=== PATIENT | female | born 1945 | race Caucasian/White ===

== ENCOUNTER 2018-12-19 11:41 | Inpatient (IN) | payer OTHER ==
[~2018-12-19] VITALS: Ht 157.5 cm; Wt 74.8 kg
[~2018-12-19 11:41] MED LIST: ADVAIR HFA115 MCG/21 INH; ALBUTEROL2.5 MG/0.5 INH; APAP500 PO; BENGAY GREASELE57 GM TOP; BISACODYL SUPP10 MG RECTAL; COLACE100 MG PO; COMPAZINE10 MG PO; DUONEB 2.5-0.5 M3 ML INH; ENOXAPARIN30 MG/0.1 SUBQ; GENTAMICIN 0.1%15 G2 TOP; HYDROCODONE-AP1 EAC6 PO; IMDUR 30 MG TAB30 M1 PO; KLOR-CON 1010 MEQ PO; KLOR-CON M1010 MEQ PO; LASIX 40 MG TAB40 M2 PO; LEVAQUIN 250 M250 MG PO; LEVAQUIN 500 M500 M1 PO; LIDOCREAM5 GM TOP; LIDOCREAM5 GM TP; MAG DELAY64 MG PO; MAG-AL PLUS SUS30 ML PO; MILK OF MA2400 MG/10 PO; MUCINEX TA600 MG/TA2 PO; NOVOLOG100 UNIT/1 SUBQ; PAIN RELIEF CRE57 GM TOP; PEPCID20 MG PO; PLAVIX 75 MG TA75 M1 PO; PREDNISONE 20 M20 M1 PO; PREDNISONE 20 M20 MG PO; PULMICORT0.5 MG/22 INH; SENNA8.6 MG PO; SINGULAIR 10 MG10 MG PO; SPIRIVA INH; TEARS NATURALE1 EACH OPHTHALMIC; TEGRETOL XR200 MG PO; TUMS PO; TYLENOL325 MG PO; WELLBUTRIN SR150 MG PO; WELLBUTRIN XL150 MG PO; XANAX 0.5 MG0.5 MG PO; ZOLOFT100 MG PO
[2018-12-19 11:42] VITALS: BP 144/61
[2018-12-19 12:25] LABS: BASOPHILS 0.5 % (0.0-2.0); EOSINOPHILS 0.3 % (0.0-3.0); HEMATOCRIT 48.2 % (37.0-47.0); HEMOGLOBIN 16.1 gm/dL (12.0-15.0); LYMPHOCYTES 6.7 % (24.0-44.0); MCH 33.6 pg (26.0-34.0); MCHC 33.3 g/dL (28.0-37.0); MCV 100.6 fL (80.0-100.0); MONOCYTES 8.7 % (1.0-8.0); PLATELET COUNT 115 thou/uL (150-400); POLYS 83.8 % (36.0-66.0); RBC 4.79 mil/uL (4.20-5.00); WBC 5.9 thou/uL (4.0-11.0)
[2018-12-19 12:45] LABS: ALBUMIN 3.3 g/dL (3.4-5.0); ANION GAP 7 mmol/L (7-16); BUN 13 mg/dL (7-18); CALCIUM 8.9 mg/dL (8.5-10.1); CHLORIDE 99 mmol/L (98-107); CO2 36 mmol/L (21-32); CREATININE 0.7 mg/dL (0.6-1.0); GLUCOSE 101 mg/dL (74-106); SGOT 17 U/L (15-37); SGPT 12 U/L (30-65); SODIUM 142 mmol/L (136-145); TOTAL BILIRUBIN 1.2 mg/dL (<0.1-1.0); TROPONIN-I <0.06 ng/mL (<0.06)
[2018-12-19 12:46] LABS: POTASSIUM 2.8 mmol/L (3.5-5.1)
[2018-12-19 13:07] LABS: BE(vivo) 7.4 mmol/L (-2 to +3); HCO3 33.7 mmol/L (22.0-26.0); PCO2 52.4 mmHg (35.0-45.0); PO2 64.5 mmHg (80.0-100.0); pH 7.426 (7.360-7.450); sO2 92.8 % (92.0-98.0)
[2018-12-19 14:00] VITALS: BP 163/60
[2018-12-19 14:20] VITALS: BP 155/62
--- NOTE | 2018-12-19 16:14 | EKG ---
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1945 Requested By: Sin Wilkinson Order Number: [id number] MD: Rajan Ames Measurements Intervals [place] Rate: 70 P: 51 MD: 157 QRS: 7 QRSD: 91 T: 32 QT: 453 QTc: 489 Interpretive Statements Sinus rhythm Poor R wave progression Abnormal T, consider ischemia, anterior leads Compared to ECG 12/03/2015 08:14:24 T wave abnormality is less pronounced Ventricular premature complex(es) no longer present Electronically Signed On 12-19-2018 16:14:10 CDT by Rajan Ames [email or web address] ��������������������������������������������� <ELECTRONICALLY SIGNED> ���������������������������������������� By: Rajan Ames MD, [facility] ��������������������������������������������� 12/19/18 1614 1203 1203 Rajan Ames MD, [facility] /EPI
--- NOTE | 2018-12-19 16:59 | NUR ---
met with patient who admits with COPD exacerbation. She reports she was at urgent care [facility] and 6 hours many blood draws she decided to leave. She went to Dr Betts office and they sent her to ER. She and spouse live in [facility] in independent home with steps inside. Patient has home oxygen with [employer]. She is usu on 3 liters. She thinks home equipt not working as she sats 77 at Drs office. Gave patient [employer] number to call over weekend if she wants them to service her equiptment. Patient reports SOA with exertion. [facility] following for dc planning.
[2018-12-19 17:15] LABS: CALCIUM 8.7 mg/dL (8.5-10.1); CREATININE 0.8 mg/dL (0.6-1.0); MAGNESIUM 1.5 mg/dL (1.8-2.4); POTASSIUM 3.4 mmol/L (3.5-5.1)
--- NOTE | 2018-12-19 17:56 | NUR ---
PT ADMITED FROM ER. ADMISSION HX AND ASSESSMENT COMPLETED. ORDERS NOTED. ORIENTED TO THE ROOM AND THE CALL SYSTEM. WILL CONTINUE TO MONITOR.
[2018-12-19 20:30] VITALS: BP 145/66
[2018-12-20] VITALS: BP 157/68
--- NOTE | 2018-12-20 03:59 | NUR ---
ASSESSMENT DOCUMENTED.PT RESTING IN NO ACUTE DISTRESS.A/OX4.VSS.UP WITH SBA TO BSC.VOIDING ADEQUATELY.NO NAUSEA OR VOMITING EPISODE REPORTED OR NOTED THIS SHIFT,NO DIARRHEA.O2 PNC AT 2LITERS,NO RESP DISTRESS NOTED.NEB TX PER RT.IVF PER ORDERS.REPLACED K+ AND MG2+ PER PROTOCOL.SR ON MONITOR PER POC.TOLERATES ACTIVITIES.PAIN MEDS GIVEN FRO ABD LEFT SIDE PAIN WITH RELIEF.PT DENIES ANY NEEDS AT THIS TIME.POC IS TO CONT WITH CURRENT TX.
[2018-12-20 04:00] VITALS: BP 142/62
[2018-12-20 05:08] LABS: HEMATOCRIT 43.8 % (37.0-47.0); HEMOGLOBIN 14.5 gm/dL (12.0-15.0); MCH 33.8 pg (26.0-34.0); MCHC 33.2 g/dL (28.0-37.0); MCV 101.8 fL (80.0-100.0); RBC 4.31 mil/uL (4.20-5.00); RDW 15.8 % (10.5-14.5); WBC 3.4 thou/uL (4.0-11.0)
[2018-12-20 05:22] LABS: CALCIUM 8.2 mg/dL (8.5-10.1); CREATININE 0.7 mg/dL (0.6-1.0); POTASSIUM 3.2 mmol/L (3.5-5.1)
[2018-12-20 08:00] VITALS: BP 145/68
[2018-12-20 11:02] LABS: MAGNESIUM 1.6 mg/dL (1.8-2.4)
[2018-12-20 12:05] VITALS: BP 143/68
[2018-12-20 15:55] VITALS: BP 113/57
--- NOTE | 2018-12-20 18:17 | NUR ---
ASSUMED CARE AT SHIFT, ALERT AND ORIENTED X4, AND FORGETFUL.VSS AND AFEBRILE. SR ON THE MONITOR. PROGRESSING TOWARD GOALS AND WILL CONTINUE WITH POC.
[2018-12-20 19:41] VITALS: BP 126/46
--- NOTE | 2018-12-21 03:18 | NUR ---
ASSUMED PT CARE AT 1900. VSS. PT A&0X4. FORGETFUL STILL. PT STILL COMPLAINING OF L SIDED PAIN, HYDROCODONE ADMINISTERED. PT REQUESTED A MEDICINE FOR COUGH; MUCINEX OFFRED, PT STATED SHE WAS TOLD MUCINEX IS CONTRAINDICATED FOR HER BIPOLAR MEDS AND REFUSED TO TAKE IT. CAROLYN NOTIFIED, JOVANIITUSFAINA ORDERED, PT TOOK MED FINE. MAG OX GIVEN DUE TO PT'S 1.6 MAG LEVEL. PT IS STABLE, ONLY STARTED SLEEPING AT 3AM THIS MORNING. NO FURTHER COMPLAINTS, WILL CONTINUE TO MONITOR PER POC
[2018-12-21 04:30] VITALS: BP 153/83
[2018-12-21 05:17] LABS: HEMATOCRIT 43.9 % (37.0-47.0); HEMOGLOBIN 14.6 gm/dL (12.0-15.0); MCH 33.8 pg (26.0-34.0); MCHC 33.2 g/dL (28.0-37.0); MCV 101.8 fL (80.0-100.0); RBC 4.31 mil/uL (4.20-5.00)
[2018-12-21 05:26] LABS: CALCIUM 8.7 mg/dL (8.5-10.1); CREATININE 0.7 mg/dL (0.6-1.0); POTASSIUM 4.3 mmol/L (3.5-5.1)
[2018-12-21 07:50] VITALS: BP 151/73
[2018-12-21 08:00] VITALS: BP 151/73
--- NOTE | 2018-12-21 10:01 | NUR ---
ALERT AND ORIENTED. APPETITE BRISK. C/O FREQUENT SLEEP INTERRUPTIONS, LITTLE SLEEP. XANAX GIVEN PER REQUEST FOR ANXIETY. SR PER TELE. FALL PRECAUTIONS IN PLACE. CLOSE TO NURSES' STATION. FREQUENT CHECKS. WILL CONTINUE TO FOLLOW.
--- NOTE | 2018-12-21 15:15 | NUR ---
ASSUMED CARE OF PT AT 13:45. AGREE WITH PREVIOUS ASSESSMENT CHARTED. PT SLEEPING IN BED. [address] NO OTHER CHANGE IN STATUS. WILL CONTINUE TO MONITOR.
[2018-12-21 15:20] VITALS: BP 132/54
[2018-12-21 15:35] VITALS: BP 145/69
[2018-12-21 19:47] VITALS: BP 151/67
[2018-12-22 00:03] VITALS: BP 155/78
--- NOTE | 2018-12-22 01:00 | NUR ---
ASSUMED PT CARE 1899. PT ALERT AND ORIENTED. REASSESSMENT COMPLETE. IV DRESSING C/D/I, NO SIGNS OF INFILTRATION. PT DENIES N/V, DENIES PAIN. UP TO BSC X1 SBA. PT CALL LIGHT WITHIN REACH, WILL CONTINUE POC UNTIL EOS.
[2018-12-22 03:57] LABS: HEMATOCRIT 44.7 % (37.0-47.0); HEMOGLOBIN 14.7 gm/dL (12.0-15.0); MCH 33.8 pg (26.0-34.0); MCHC 32.9 g/dL (28.0-37.0); MCV 102.6 fL (80.0-100.0); RBC 4.36 mil/uL (4.20-5.00); RDW 15.9 % (10.5-14.5); WBC 6.9 thou/uL (4.0-11.0)
[2018-12-22 04:00] LABS: CALCIUM 8.7 mg/dL (8.5-10.1); CREATININE 0.6 mg/dL (0.6-1.0); POTASSIUM 4.4 mmol/L (3.5-5.1)
[2018-12-22 04:26] VITALS: BP 160/87
[2018-12-22 07:40] VITALS: BP 154/91
--- NOTE | 2018-12-22 08:38 | NUR ---
PT A&OX4, AMBULATES WITH STAND BY ASSIST, SITTING IN CHAIR EATING BREAKFAST. IV INTACT IN L AC. LUNG SOUNDS ARE COARSE. RECEIVING BREATHING TX Q 4 HRS. DENIES ANY PAIN AT THIS TIME. WILL CONT. POC.
[2018-12-22 11:35] VITALS: BP 130/70
[2018-12-22] MEDS ORDERED: PREDNISONE 10 M10 MG PO (12:15)
[2018-12-22 12:25] VITALS: BP 154/91
== END 2018-12-22 12:43 | disposition home or self-care (01) | DRG 189 ==
LOC: ER 11:41 → 2N 14:00 → EROBS 14:03 → 2N 14:15 → ENTRNSPT 12-22 12:32 → EDTRNSPTSTS 12-22 12:34 → 2N 12-22 12:43
PROVIDERS: Physician Assistant; ADMIT Hospitalist
DX: J96.21 Acute and chronic respiratory failure with hypoxia (principal); J44.1 Chronic obstructive pulmonary disease with (acute) exacerbation; K52.9 Noninfective gastroenteritis and colitis, unspecified; F32.9 Major depressive disorder, single episode, unspecified; F41.9 Anxiety disorder, unspecified; E83.42 Hypomagnesemia; R79.89 Other specified abnormal findings of blood chemistry; I10 Essential (primary) hypertension; G40.909 Epilepsy, unspecified, not intractable, without status epilepticus; Z79.899 Other long term (current) drug therapy; Z88.0 Allergy status to penicillin; Z88.6 Allergy status to analgesic agent; Z91.041 Radiographic dye allergy status; Z90.49 Acquired absence of other specified parts of digestive tract
CPT/HCPCS: 10081

== ENCOUNTER 2018-12-24 10:54 | Inpatient (IN) | payer OTHER ==
[~2018-12-24] VITALS: Ht 157.5 cm; Wt 74.5 kg
--- NOTE | ~2018-12-24 | HC ---
[facility] [place] [address] CONSULTATION Name: KAYLEIGH MCINTYRE Room #: 360-P ADM IN ..#: [id number] Admission: 12/24/18 ������������������ Attend Phys: Lane Greenwood MD Discharge: ������������������ Date of : 46 Report #: [id number] THIS REPORT FOR: //name// CC: Lane Murphy DATE OF SERVICE: 12/26/2018 HISTORY OF PRESENT ILLNESS: The patient is a 73-year-old white female with history of O2 dependent COPD, admitted with increased nausea, coffee-ground emesis, noted to have pneumonia. She has choledocholithiasis with ductal dilation on CT. Plan is to have an EGD with ERCP once respiratory status is stable. She is currently being treated for possible aspiration pneumonia versus atelectasis and colitis as well as hypertension. We are seeing her in rehabilitation medicine consultation. PAST MEDICAL HISTORY: Includes COPD, O2 dependent 3 liters, asthma, cholecystectomy per report, she has had a prior history of right-sided frontal subdural hematoma back in 2016. Possible seizure disorder, on Tegretol. ALLERGIES: SHE DOES HAVE ALLERGIES TO IODINE, PENICILLIN, ASPIRIN CAUSED STOMACH UPSET. MEDICATIONS: Please see the full medication listing. SOCIAL HISTORY: Lives in a house with her , five steps in, plus another 6 steps inside. This is a split level. It is in [place], [place]. She premorbidly was ambulatory without gait aids, although she did tend to furniture walk. She was on 3 liters. REVIEW OF SYSTEMS: No current complaints of chest pain, shortness of breath, or abdominal discomfort. PHYSICAL EXAMINATION: GENERAL: A 73-year-old white female in no obvious distress. VITAL SIGNS: Last recorded temperature 98.7, pulse 73, respirations 16, and blood pressure 147/83. NEUROLOGIC: She is alert. Facies are symmetric. She is on 4 liters. She has functional range of motion of the upper extremity strength is grade 4-/5. DTRs are trace to 1. Lower extremities, no focal calf swelling, functional range of motion with strength grade 3+/5. DTRs are trace to 1. She was min assist with sit to stand. Gait was 18 feet min assist. ASSESSMENT: A 73-year-old white female with the following problem list: 1. Medical complexity with generalized debilitation. 2. Choledocholithiasis with ductal dilatation. Gastroenterology is indicating [address] [address] CONSULTATION Name: KAYLEIGH MCINTYRE Room #: 360-P [facility]#: [id number] Admission: 12/24/18 ������������������ Attend Phys: Lane Greenwood MD Discharge: ������������������ Date of : 46 Report #: [id number] EGD with ERCP once the patient is respiratorily stable. 3. Possible aspiration pneumonia versus atelectasis with chronic respiratory failure. 4. Chronic obstructive pulmonary disease. 5. Colitis occult positive. 6. Hypertension. 7. Tobacco abuse. 8. Seizure disorder. PLAN: Therapies are working on improving strength, endurance, functional mobility, and ADLs. At this point, anticipating the EGD/ERCP once respiratory status is stable. Once she is further medically stabilized, she certainly may warrant an acute in-hospital inpatient rehabilitation stay. At this point, we will continue to follow along with you. ��������������������������������������������� ���������������������������������������� By: ��������������������������������������������� 1150 1412 Elroy Guzman MD /nt
[~2018-12-24 10:54] MED LIST changes: +PREDNISONE 10 M10 MG PO
[2018-12-24 10:55] VITALS: BP 197/70
--- NOTE | 2018-12-24 11:02 | NUR ---
RT AT BEDSIDE
[2018-12-24 11:12] LABS: BE(vivo) 6.2 mmol/L (-2 to +3); HCO3 33.5 mmol/L (22.0-26.0); PCO2 56.7 mmHg (35.0-45.0); PO2 87.1 mmHg (80.0-100.0); pH 7.389 (7.360-7.450); sO2 96.4 % (92.0-98.0)
[2018-12-24 11:15] LABS: ABSOLUTE NEUTROPHILS 6.8 thou/uL (1.4-8.2); BASOPHILS 0.8 % (0.0-2.0); EOSINOPHILS 0.1 % (0.0-3.0); HEMATOCRIT 52.2 % (37.0-47.0); LYMPHOCYTES 3.2 % (24.0-44.0); MCH 33.5 pg (26.0-34.0); MCHC 33.2 g/dL (28.0-37.0); MCV 100.9 fL (80.0-100.0); MONOCYTES 9.7 % (1.0-8.0); POLYS 86.2 % (36.0-66.0); RBC 5.17 mil/uL (4.20-5.00); RDW 15.5 % (10.5-14.5); WBC 7.9 thou/uL (4.0-11.0)
[2018-12-24 11:21] LABS: HEMOGLOBIN 17.3 gm/dL (12.0-15.0)
[2018-12-24 11:23] LABS: CALCIUM 9.1 mg/dL (8.5-10.1); CREATININE 0.8 mg/dL (0.6-1.0); POTASSIUM 3.8 mmol/L (3.5-5.1)
[2018-12-24 11:33] LABS: ALBUMIN 3.3 g/dL (3.4-5.0); TOTAL BILIRUBIN 0.9 mg/dL (<0.1-1.0); TOTAL PROTEIN 6.2 g/dL (6.4-8.2); TROPONIN-I 0.06 ng/mL (<0.06)
[2018-12-24 11:54] LABS: LARGE PLATELETS RARE; PLATELET COUNT 132 thou/uL (150-400); PLATELET ESTIMATE SLIGHTLY DECREASED
[2018-12-24 11:57] LABS: URINE BILIRUBIN NEGATIVE (Negative); URINE BLOOD NEGATIVE (Negative); URINE CLARITY CLEAR; URINE COLOR YELLOW; URINE GLUCOSE-RANDOM* NEGATIVE (Negative); URINE KETONES TRACE (Negative); URINE LEUKOCYTES-REFLEX NEGATIVE (Negative); URINE NITRITE-REFLEX NEGATIVE (Negative); URINE PROTEIN (DIPSTICK) NEGATIVE (Negative); URINE SPECIFIC GRAVITY 1.025 (1.005-1.035); URINE UROBILINOGEN 0.2 E.U./dl (0.2-1.0)
[2018-12-24 13:57] VITALS: BP 170/70
[2018-12-24 14:42] VITALS: BP 209/86
[2018-12-24] MEDS ORDERED: TEGRETOL200 MG PO (15:01)
[2018-12-24] MEDS ORDERED: ZOLOFT50 MG PO (15:05)
[2018-12-24] MEDS ORDERED: LOPERAMIDE 2 MG2 M1 PO (15:06)
[2018-12-24 15:10] VITALS: BP 150/71
[2018-12-24] MEDS ORDERED: BUPROPION HCL200 MG PO (15:10)
[2018-12-24] MEDS ORDERED: XANAX 0.5 MG0.5 MG PO (15:21)
[2018-12-24] MEDS ORDERED: IBUPROFEN 600600 M1 PO (15:22)
[2018-12-24] MEDS ORDERED: 24HR ALLERGY REL5 MG PO (15:23)
[2018-12-24] MEDS ORDERED: NORCO 5-325 TA1 EAC1 PO (15:23)
[2018-12-24 19:31] VITALS: BP 176/79
--- NOTE | 2018-12-24 19:55 | NUR ---
PATIENT ADMITTED TO ROOM. SHE IS ALERT ORIENTED X4. SHE DENIES PAIN. RESPIRATIONS NON LABORED WITH OXYGEN AT 4;L NC. CONT OF BOWEL AND BLADDER. WILL CONT WITH PLAN OF CARE.
[2018-12-24 21:00] VITALS: BP 161/80
[2018-12-25 00:16] VITALS: BP 157/69
[2018-12-25 04:37] VITALS: BP 150/76
[2018-12-25 05:32] LABS: PLATELET COUNT 113 thou/uL (150-400); RDW 15.2 % (10.5-14.5)
[2018-12-25 05:35] LABS: ABSOLUTE NEUTROPHILS 5.2 thou/uL (1.4-8.2); BASOPHILS 0.2 % (0.0-2.0); HEMATOCRIT 45.6 % (37.0-47.0); LYMPHOCYTES 1.6 % (24.0-44.0); MCH 33.4 pg (26.0-34.0); MCHC 32.9 g/dL (28.0-37.0); MCV 101.4 fL (80.0-100.0); POLYS 92.2 % (36.0-66.0); RBC 4.49 mil/uL (4.20-5.00); WBC 5.6 thou/uL (4.0-11.0)
[2018-12-25 05:43] LABS: CALCIUM 8.4 mg/dL (8.5-10.1); CREATININE 0.6 mg/dL (0.6-1.0); MAGNESIUM 1.7 mg/dL (1.8-2.4); POTASSIUM 3.9 mmol/L (3.5-5.1)
--- NOTE | 2018-12-25 05:45 | NUR ---
resting quietly tonight. denies pain. continues on iv fluids. calls approp to get out of bed to the bsc. she would prefer not to walk to the bathroom. careplan reviewed. no discharge concerns voiced.
[2018-12-25 05:46] LABS: ALBUMIN 2.6 g/dL (3.4-5.0); DIRECT BILIRUBIN 0.1 mg/dL (<0.1-0.3); TOTAL BILIRUBIN 0.8 mg/dL (<0.1-1.0); TOTAL PROTEIN 5.2 g/dL (6.4-8.2)
--- NOTE | 2018-12-25 07:23 | EKG ---
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1945 Requested By: Sin Wilkinson Order Number: [id number] MD: Rajan Ames Measurements Intervals [place] Rate: 68 P: 47 IN: 158 QRS: 5 QRSD: 96 T: 34 QT: 441 QTc: 470 Interpretive Statements Sinus rhythm Abnormal T, consider ischemia, anterior leads Compared to ECG 12/19/2018 12:03:35 No significant change was found Electronically Signed On 12-25-2018 7:23:41 CDT by Rajan Ames [email or web address] ��������������������������������������������� <ELECTRONICALLY SIGNED> ���������������������������������������� By: Rajan Ames MD, [facility] ��������������������������������������������� 12/25/18 0723 1109 08 Rajan Ames MD, [facility] /EPI
[2018-12-25 10:09] VITALS: BP 157/74
--- NOTE | 2018-12-25 10:33 | NUR ---
INITIAL ASSESSMENT: High risk nursing referral received. SW reviewed chart and spoke with nursing. Pt was admitted from home due to nausea/vomiting/diarrhea. Pt with hx of COPD. Pt was recently discharge home on 12/22. Pt is currently off the unit having video swallow study. GI consulted and pt will neeed an EGD/ERCP when more stable. Per chart, pt lives at home with her spouse in [place], [place]. Prior to admission, pt was independent with ADLs. Pt has home O2 in place at home through [employer]. Pt is normally on 3L continuous O2. Pt's PCP is Dr. Murphy. SW is following to assist as needed with discharge planning.
[2018-12-25 12:26] VITALS: BP 157/74
[2018-12-25 15:34] VITALS: BP 151/67
[2018-12-25 19:09] VITALS: BP 136/60
--- NOTE | 2018-12-25 19:50 | NUR ---
PT ALERT AND ORIENTED TIMES FOUR. VSS, 93%4L, SR ON TELE, IVF INFUSING PER ORDER. PT DENEIS N/V/D AND PAIN THIS SHIFT. UP TOLERATES MEDS AND MEALS. PT UP TP RESTRTOOM WITH ASSIT OF ONE. FAMILY AT BEDSIDE. PT SLOWLY PROGRESSING TOWRADS POC GOALS.
[2018-12-26 04:08] VITALS: BP 154/71
--- NOTE | 2018-12-26 04:22 | NUR ---
ASSUMED CARE OF PT AT 1900. A&Ox4, ANXIOUS OVER TESTS, TX'S AND BEING IN HOSPITAL. REQUESTED EXTRA ALPRAZOLAM, PROVIDED. ABLE TO SLEEP AROUND 0230. NSR ON TELE. VS STABLE DOCUMENTED. IV INFILTRATED AND REPLACED IN L FOREARM, PATENT W/ FLUIDS INFUSING. UP TO BSC SEVERAL TIMES W/ 50 mL UOP OR LESS EACH TIME. SCANNED BLADDER AFTER VOIDING, 77mL LEFT IN BLADDER. WILL CONTINUE TO MONITOR. SOA W/ TRANSFER TO BSC. C/O ABD DISCOMFORT AND FEELING LIKE SHE NEEDED TO HAVE A BOWEL MOVEMENT, SMEAR OF BM ON CHUCKS 2X, UNABLE TO VOID MORE. CURRENTLY RESTING. SLOW PROGRESSION TOWARDS POC GOALS THIS SHIFT. WILL CONTINUE TO PROVIDE CARE AND MONITOR.
[2018-12-26 05:18] LABS: HEMOGLOBIN 14.6 gm/dL (12.0-15.0); MCH 33.3 pg (26.0-34.0); MCHC 33.1 g/dL (28.0-37.0); MCV 100.7 fL (80.0-100.0); RBC 4.37 mil/uL (4.20-5.00); RDW 14.9 % (10.5-14.5); WBC 6.2 thou/uL (4.0-11.0)
[2018-12-26 05:52] LABS: ALBUMIN 2.6 g/dL (3.4-5.0); CALCIUM 8.6 mg/dL (8.5-10.1); CREATININE 0.6 mg/dL (0.6-1.0); DIRECT BILIRUBIN 0.2 mg/dL (<0.1-0.3); MAGNESIUM 1.7 mg/dL (1.8-2.4); POTASSIUM 4.2 mmol/L (3.5-5.1); TOTAL BILIRUBIN 0.7 mg/dL (<0.1-1.0); TOTAL PROTEIN 4.8 g/dL (6.4-8.2)
[2018-12-26 07:31] VITALS: BP 147/83
--- NOTE | 2018-12-26 13:45 | NUR ---
PATIENT SEEN BY DR. KRUEGER THIS DATE. PATIENT IS A POTENTIAL CANDIDATE FOR ACUTE REHAB. BALL MAKER SPOKE WITH [facility] INCOME DIRECTOR, WHO REPORTS THAT PATIENT IS TO HAVE EDG AND ERCP ON SATURDAY. WILL PLAN AT THIS TIME TO BRING PATIENT TO ACUTE REHAB AFTER PROCEDURES SATURDAY IF PATIENT IS MEDICALLY STABLE WITH NO OTHER MEDICAL PROCEDURES/TESTS PLANNED AND STILL MEETS ACUTE REHAB CRITERIA. THANK YOU SO MUCH FOR THIS REFERRAL.
--- NOTE | 2018-12-26 15:01 | NUR ---
SW reviewed chart and spoke with nursing and attending physician. Pt is scheduled to have EGD/ERCP on Saturday. [facility] consulted and are able to accept pt on Saturday following procedures. Pt is currently on 4L of O2. SW met with pt at bedside to discuss discharge plan. Pt is agreeable with going to [facility] at this time, but will want to discuss again on Saturday. SW is following to assist as needed with discharge planning.
[2018-12-26 19:06] VITALS: BP 126/62
--- NOTE | 2018-12-26 20:27 | NUR ---
care of pt assumed this am @ ~0700. pt w/ at her bs this am. pt aox4 this am, but noted to be increasing forgetful and confused as the day progressed, especially after being awakened from a nap (as she thought she was in her basement at home). pt co soa w/ activity, pt on 4lt nc, states she wears 3lt nc at home. no cough for sputum noted today. pt receiving ivf's, but loss of iv access this am required iv team to restart an iv late afternoon. magnesium replacement given w/ lab check in am. gi scheduled ercp on Saturday, consent still needed to be signed. pt up to chair bsc several times today, and up to her chair w/ pt late afternoon. pt verbalized her desire to get a good night's sleep tonight.
[2018-12-27 05:04] VITALS: BP 148/66
[2018-12-27 05:22] LABS: HEMATOCRIT 45.5 % (37.0-47.0); HEMOGLOBIN 15.1 gm/dL (12.0-15.0); MCH 33.7 pg (26.0-34.0); MCHC 33.2 g/dL (28.0-37.0); MCV 101.5 fL (80.0-100.0); RBC 4.48 mil/uL (4.20-5.00); RDW 15.3 % (10.5-14.5)
[2018-12-27 05:53] LABS: ALBUMIN 2.5 g/dL (3.4-5.0); CALCIUM 8.4 mg/dL (8.5-10.1); CREATININE 0.8 mg/dL (0.6-1.0); MAGNESIUM 2.1 mg/dL (1.8-2.4); TOTAL BILIRUBIN 0.5 mg/dL (<0.1-1.0)
--- NOTE | 2018-12-27 06:42 | NUR ---
ASSUMED CARE OF PT AT 1900. ALERT AND ORIENTED W/ CONFUSED STATEMENTS AT TIMES. DID NOT SLEEP VERY WELL. UP TO BSC MORE THAN 10Xs OVER NOC W/ 20-50mL UOP PER VOID. NO ACUTE DISTRESS. PROGRESSING TOWARDS POC GOALS. WILL CONTINUE TO PROVIDE CARE AND MONITOR.
[2018-12-27 07:20] VITALS: BP 156/91
[2018-12-27 11:10] VITALS: BP 167/81
--- NOTE | 2018-12-27 15:59 | NUR ---
care of pt assumed this am @ ~0700. pt noted to be awake and alert today, but episodes of confusion and forgetfulness noted. pt is aware of her impending ercp on Saturday and is anxious about the procedure stating "they are going to leave the hole open", "but it isn't working anyway so i guess that is ok". pt w/ a good appetite for food and fluid today. pt receiving ivf's and antibx. pt up in her chair for lunch today for a few hours and then requested to go back to bed for a nap this afternoon. pt worked w/ pt/renetta today walking to the room door and back. pt disappointed in herself that she can not do more, but encouraged her that a little bit every day will help build her endurance and strength. pt has denied co pain, no n/v/d and no soa.
[2018-12-27 16:25] VITALS: BP 160/81
--- NOTE | 2018-12-27 16:34 | HC ---
[facility] [place] [address] CONSULTATION Name: KAYLEIGH MCINTYRE Room #: 360-P ADM IN .R.#: [id number] Admission: 12/24/18 ������������������ Attend Phys: Lane Greenwood MD Discharge: ������������������ Date of : 46 Report #: [id number] THIS REPORT FOR: //name// CC: Lane Murphy PULMONARY CONSULTATION PRIMARY CARE PHYSICIAN: Lincoln Luciano M.D. REASON FOR REFERRAL: COPD. HISTORY OF PRESENT ILLNESS: The patient is a 73-year-old white female who was admitted on 12/24/2018 with nausea, vomiting and abdominal pain. Pulmonary consultation was requested for COPD. The patient was most recently admitted on 12/19/2018 for COPD exacerbation and gastroenteritis. She returns to the ER on 12/24/2018 with abdominal pain, dyspnea, nausea, vomiting and diarrhea. She has choledocholithiasis, dysphagia. Cause of persistent nausea and vomiting is uncertain at this time. GI has been involved. The patient has known COPD. The patient continues to smoke. The patient has been previously seen in the Pulmonary Department by Dr. Michelle. Baseline FEV1 in 2018 was around 1.00 liters or 52% predicted. Currently, she appears mildly dyspneic. Denies any chest pain or productive cough. PAST MEDICAL HISTORY: As mentioned above, including COPD/asthma overlap, bipolar disorder, chronic pain syndrome, depression, glaucoma, ongoing tobacco use, irritable bowel syndrome, coronary artery disease with history of myocardial infarction, history of CVA and migraine disorder. PAST SURGICAL HISTORY: Notable for cholecystectomy and partial hysterectomy. ALLERGIES: ASPIRIN, BACTRIM, CODEINE, IODINE AND MORPHINE SULFATE; REACTIONS UNSPECIFIED. SHE IS ALSO ALLERGIC TO PENICILLIN, REACTIONS UNSPECIFIED. HOME MEDICATIONS: Xanax 0.5 mg p.o. t.i.d., bupropion 200 mg p.o. b.i.d., Motrin p.r.n., hydrocodone 5/325 q.6h. p.r.n., levocetirizine 5 mg p.o. at bedtime, Tegretol 200 mg p.o. at bedtime, Zoloft 50 mg once a day, Imodium p.r.n., nebulized Xopenex 1.25 mg q 4 hours and p.r.n., Ventolin HFA 2 puffs p.r.n., Singulair 10 mg once a day, Advair 230 mcg/21 mcg 2 puffs twice a day. FAMILY HISTORY: Both parents . There is a history of suicide in the family along with heart disease, diabetes and hypertension. [address] [address] CONSULTATION Name: KAYLEIGH MCINTYRE JONO Room #: 360-P [facility] IN M.R.#: [id number] Admission: 12/24/18 ������������������ Attend Phys: Lane Greenwood MD Discharge: ������������������ Date of : 46 Report #: [id number] SOCIAL HISTORY: The patient continues to smoke about a pack a day for the past 50 years. She denies any alcohol use. REVIEW OF SYSTEMS: As mentioned above, otherwise 10-point system review negative. PHYSICAL EXAMINATION: GENERAL: She is awake, alert. Appears afld-nt-rplwlxyqbr dyspneic. VITAL SIGNS: Temperature is 98.7 degrees Fahrenheit, pulse is 73, respiratory rate is 18, blood pressure 147/83 mmHg and saturation 95%. HEENT: Normocephalic, atraumatic. NECK: Supple, without any lymphadenopathy or thyromegaly. CHEST: Breath sounds are fair, with mild expiratory wheezes. No rales. CARDIOVASCULAR: Normal S1, S2. There are no murmurs or gallops. There is no JVD. There is no carotid bruit. Pulses are 2+/4+ bilaterally. ABDOMEN: Soft, nontender. No organomegaly or masses. GENITOURINARY: Deferred. RECTAL: Deferred. EXTREMITIES: Trace edema. No cyanosis or clubbing. LABORATORY DATA: Chest x-ray shows cardiomegaly, mild interstitial infiltrates and small bilateral pleural effusions. Arterial blood gas revealed pH of 7.3, pCO2 of 56 and pO2 of 87 on O2. BNP 3100. Electrolytes are normal and creatinine is normal. WBC 7900, hemoglobin 17.7. CT abdomen and pelvis revealed choledocholithiasis with biliary duct dilatation, possible mild diffuse colitis and small right-sided pleural effusion. Albumin 2.6. IMPRESSION: 1. Gkzsk-os-ckwkoid hypercapnic hypoxic respiratory failure. 2. Chronic obstructive pulmonary disease, severe impairment, baseline FEV1 of 1.05 liters or 52% predicted. 3. Ongoing tobacco use. 4. Choledocholithiasis with ductal dilatation. 5. Nausea, vomiting, diarrhea, dysphagia, gastroesophageal reflux disease. 6. Mild interstitial infiltrates in the bases, possible aspiration pneumonia. 7. Colitis by CT abdomen. 8. Hypertension. 9. History of falls, along with debility and weakness. RECOMMENDATIONS: Recommend bronchodilators, low-dose corticosteroids, given clinical symptoms. There is a concern for possible aspiration given nausea and vomiting. I think it is reasonable for antibiotics. DVT and GI prophylaxis recommended. Strongly recommend smoking cessation. Wean O2 for saturation 90%. [address] [address] CONSULTATION Name: KAYLEIGH MCINTYRE Room #: 360-P ADM IN M.R.#: [id number] Admission: 12/24/18 ������������������ Attend Phys: Lane Greenwood MD Discharge: ������������������ Date of : 46 Report #: [id number] Thank you for this consultation. ��������������������������������������������� <ELECTRONICALLY SIGNED> ���������������������������������������� By: Bebo Valdez MD ��������������������������������������������� 12/27/18 1634 1615 0031 Bebo Valdez MD /nt
[2018-12-27 20:01] VITALS: BP 157/68
[2018-12-28 04:44] VITALS: BP 171/90
[2018-12-28 06:11] LABS: HEMATOCRIT 47.5 % (37.0-47.0); HEMOGLOBIN 15.5 gm/dL (12.0-15.0); MCH 33.6 pg (26.0-34.0); MCHC 32.7 g/dL (28.0-37.0); MCV 102.8 fL (80.0-100.0); RBC 4.62 mil/uL (4.20-5.00); RDW 15.2 % (10.5-14.5); WBC 5.2 thou/uL (4.0-11.0)
[2018-12-28 06:26] LABS: ALBUMIN 2.6 g/dL (3.4-5.0); CALCIUM 8.3 mg/dL (8.5-10.1); CREATININE 0.5 mg/dL (0.6-1.0); MAGNESIUM 1.9 mg/dL (1.8-2.4); POTASSIUM 3.9 mmol/L (3.5-5.1); TOTAL BILIRUBIN 0.4 mg/dL (<0.1-1.0); TOTAL PROTEIN 5.1 g/dL (6.4-8.2)
--- NOTE | 2018-12-28 07:32 | NUR ---
SLEPT MOST OF SHIFT. ASSIST UP TO COMODE AND CHAIR NEEDED WITH ASSIST OF 1. DENIES COMPLAINTS OF PAIN OR SHORTNESS OF AIR. ANXIOUS IN THE NOC AND PRN SO PRN XANAX GIVEN. WORKING ON GOALS AND PLAN OF CARE FOR NOC. NO DIARHEA THIS SHIFT. PROGRESSING SLOWLY TOWARDS DISCHARGE GOALS. CONTINUE TO ASSES CLOESLY.
[2018-12-28 07:43] VITALS: BP 187/93
[2018-12-28 11:07] VITALS: BP 176/93
--- NOTE | 2018-12-28 11:35 | NUR ---
Assumed pt care this am, is at the bedside. Consent fpor procedure on Saturday signed. Pt has episodes of confusion and forgetfullness at times. Diet is well tolerated all medication taken. No signs of distress nausea, vomiting or diarrhea has been noted. Pt has been transfered to [facility], report given. Pt is now transferred.
--- NOTE | 2018-12-28 15:22 | NUR ---
XFER PT A/O X4, FORGETFULL. PT CAME IN FROM 3W. REASSESMENT, REORIENTED TO ROOM. PT SCHEDULED FOR ERCP. CONSENT ON CHART. WILL CONTINUE TO MONITOR.
[2018-12-28 20:30] VITALS: BP 184/86
[2018-12-28 22:38] VITALS: BP 196/90
[2018-12-28 23:30] VITALS: BP 137/61
--- NOTE | 2018-12-29 04:22 | NUR ---
PATIENT ALERT AND ORIENTED X4 WITH FORGETFULNESS. COOPERATIVE WITH CARE. UP TO BSC WITH ONE ASSIST. PATIENT HAS BEEN NPO SINCE 12/28/18 AT 2359 FOR EGD/ERCP TODAY. MEDICATED X1 FOR INCREASED BLOOD PRESSURE WITH GOOD RESULTS. DENIES PAIN. RESTING QUIETLY AT TIME OF NOTE. WILL MONITOR.
[2018-12-29 08:00] VITALS: BP 192/89
[2018-12-29 15:00] VITALS: BP 121/79
[2018-12-29 17:00] VITALS: BP 147/67
[2018-12-29 21:27] VITALS: BP 134/61
--- NOTE | 2018-12-29 21:33 | NUR ---
ASSUMED PT CARE THIS AM, PT ON NPO FOR EGDERCP. PT WAS TAKEN DOWN EARLY AFTERNOON. BP HAS BEEN HIGH AND PER PT HAS NOT GONE TO NAY DOCTOR FOR THIS, REFERRAL TO STATION SUPERVISOR PLACED. POC FOLLOWED NO OTHER ISSUES IDENTIFIED. NO SIGNS OF DISTRES NOTED. ENDORSED TO THE PM NURSE.
--- NOTE | 2018-12-30 05:17 | NUR ---
ASSUMED CARE OF PT@ 1900. PT A&O X4. STATED PAIN IN ABD AND PAIN MEDS GIVEN FOR MANAGEMENT. FLUIDS INFUSING. UP WITH SBA AND ON CLEAR LIQUID DIET. BED IN LOW POSITION AND CALL LIGHT WITHIN REACH WILL CONTINUE TO MONITOR.
[2018-12-30 05:57] VITALS: BP 162/82
[2018-12-30 07:17] VITALS: BP 134/55
--- NOTE | 2018-12-30 07:35 | EKG ---
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1945 Requested By: Precious Persaud Order Number: [id number] MD: Rajan Ames Measurements Intervals [place] Rate: 75 P: 51 MO: 145 QRS: -31 QRSD: 90 T: 28 QT: 404 QTc: 452 Interpretive Statements Sinus rhythm Left axis deviation Nonspecific T abnormalities Compared to ECG 12/24/2018 11:09:40 Left-axis deviation now present T wave abnormality less pronounced Electronically Signed On 12-30-2018 7:34:53 CDT by Rajan Ames [email or web address] ��������������������������������������������� <ELECTRONICALLY SIGNED> ���������������������������������������� By: Rajan Ames MD, [facility] ��������������������������������������������� 12/30/18 0734 1329 1329 Rajan Ames MD, [facility] /EPI
--- NOTE | 2018-12-30 10:44 | NUR ---
Assess for length of stay. Acute/chronic respiratory failure, COPD. S/P ERCP sphincterectomy, and stent on 12/29. Has been npo/clear liquids x 2 days and prior to surgery was tolerating mech altered chopped diet. No wt loss hx. Low nutrition risk, follow for timely diet advance
[2018-12-30 12:58] LABS: ANION GAP 8 mmol/L (7-16); BUN 15 mg/dL (7-18); CHLORIDE 98 mmol/L (98-107); CO2 26 mmol/L (21-32); CREATININE 0.5 mg/dL (0.6-1.0); GLUCOSE 87 mg/dL (74-106); POTASSIUM 4.6 mmol/L (3.5-5.1)
[2018-12-30 12:59] LABS: CALCIUM 8.5 mg/dL (8.5-10.1); LIPASE 111 U/L (73-393)
[2018-12-30 13:00] LABS: ALBUMIN 2.5 g/dL (3.4-5.0); SODIUM 132 mmol/L (136-145); TOTAL PROTEIN 4.8 g/dL (6.4-8.2)
[2018-12-30 13:11] LABS: SGOT 15 U/L (15-37)
[2018-12-30 13:15] LABS: TOTAL BILIRUBIN ND mg/dL (<0.1-1.0)
[2018-12-30 13:16] LABS: SGPT ND U/L (14-59)
--- NOTE | 2018-12-30 13:36 | P ---
[facility] [place] [address] PROCEDURE REPORT Name: KAYLEIGH MCINTYRE Room #: 462-P [facility] IN .R.#: [id number] Admission: 12/24/18 ������������������ Attend Phys: Lane Greenwood MD Discharge: ������������������ Date of : 47 Report #: [id number] THIS REPORT FOR: //name// CC: Lane Murphy BRIEF HISTORY: The patient is a 73-year-old woman who was admitted with nausea, vomiting, diarrhea. She did have hematemesis. She was subsequently found to have a dilated biliary tree on CT and a common duct stone was confirmed on MRCP. PREOPERATIVE DIAGNOSES: Hematemesis and choledocholithiasis. The patient is status post cholecystectomy years ago. POSTOPERATIVE DIAGNOSES: 1. Diffuse gastritis with few erosions. 2. Choledocholithiasis, dilated biliary tree. MEDICATIONS: Intubation general anesthesia. SPECIMEN: Biopsies of gastritis. ESTIMATED BLOOD LOSS: 3 mL. PROCEDURE: ERCP with sphincterotomy and stent placement as well as EGD and biopsy. FINDINGS: Prior to anesthesia, the procedure of upper endoscopy and ERCP and stone extraction was discussed with the patient as well as potential risks, benefits, and complications. She indicates she understands and desires to proceed. DESCRIPTION OF PROCEDURE: The patient was in the prone position on the operating room and intubated with general anesthesia. The Olympus video endoscope was inserted in the cervical esophagus under direct vision without difficulty. Examination of this organ through its entire length revealed normal esophageal mucosa down to the squamocolumnar junction. Squamocolumnar junction was inspected and noted to be unremarkable. A hiatus hernia was not seen. Scope was advanced in the stomach, which was examined on end view as well as retroflexed views. First of all, she had a moderate amount of gastric material in the body of the stomach suggestive of gastroparesis. There was also retained bile in the stomach and diffuse erythematous gastritis, judged to be moderately severe consistent with bile reflux gastritis. No ulcers were seen, occasional erosion was seen. Biopsies obtained of the gastritis. The pyloric channel bulb and postbulbar sweep were unremarkable. The papilla was identified and noted to be unremarkable. The EGD scope was withdrawn and the ERCP scope was introduced into the [facility] [address] [place] [address] PROCEDURE REPORT Name: KAYLEIGH MCINTYRE JONO Room #: 462-P [facility] IN [facility].#: [id number] Admission: 12/24/18 ������������������ Attend Phys: Lane Greenwood MD Discharge: ������������������ Date of : 47 Report #: [id number] oropharynx and guided through the stomach, across the pylorus into the duodenum. In a single view both the major and minor papillae were seen. They were noted to be unremarkable. We initially cannulated the major papilla and on first pass obtained deep passage into the biliary tree. A guidewire was inserted. Contrast was injected. There was approximately 8-10 mm round stone floating in the mid bile duct. We then completed a sphincterotomy and passed a 2.5 cm basket in the biliary tree. It appeared that the stone was engaged in the basket. It was pulled down to the sphincterotomy site. It was a little tight and we pulled on the basket, which subsequently popped out. However, we did not see the stone come out. I did not see any debris or fragments of the sphincterotomy site. We then made several additional passes with the basket and could not engage any other material or stone material. We reinjected the biliary tree and for fleeting moment at one time, it was thought that the stone may still have been present. However, with both use of balloons and basket we could not capture anything. We then dragged the biliary tree with a balloon. The biliary tree was probably at the maximum point up to 2 cm in diameter. There were air bubbles distally, but we were able to pull this out with an inflated balloon. We were no longer able to identify a filling defect within the duct. Several passes were made and multiple injections of contrast were made. Since there was uncertainty that the stone was adequately retrieved or fragments were completely retrieved, a 7-Croatian 5 cm double pigtail catheter was placed in the biliary tree with good success. The scope was withdrawn. The patient tolerated the procedure well. DISPOSITION: The patient with hematemesis. I do not see an ulcer actively bleeding lesion. She does have gastritis. We would treat symptomatically at this point in time. Follow up on biopsies with regard to the gastritis. She does have retained material in her stomach suggestive of gastroparesis. We will discuss further with the patient regarding gastroparesis. Common duct stone was identified, sphincterotomy was completed; however, we could not be certain that the stone passed. Stent was placed. We will continue to monitor and follow. We will have her come back in about 3 months or so for ERCP with stent removal. If a stone remains present or there are fragments, they may break up with the stent. ��������������������������������������������� <ELECTRONICALLY SIGNED> ���������������������������������������� By: Ramsey Garcia MD ��������������������������������������������� 12/30/18 [id number] [id number] Ramsey Garcia MD /nt
[2018-12-30] MEDS ORDERED: MUCINEX600 MG PO (14:00)
[2018-12-30] MEDS ORDERED: IPRAT-ALBUT 0.5-3 ML INH ×2 (14:00)
[2018-12-30] MEDS ORDERED: TYLENOL325 MG PO (14:00)
[2018-12-30] MEDS ORDERED: PROTONIX40 M1 PO (14:00)
[2018-12-30] MEDS ORDERED: PREDNISONE 10 M10 MG PO (14:08)
[2018-12-30] MEDS ORDERED: LEVAQUIN 750 M750 MG PO (14:08)
--- NOTE | 2018-12-30 14:36 | 2DMMODE ---
[facility] [address] [facility] [place] [address] 2 D/M-MODE ECHOCARDIOGRAM Name: KAYLEIGH MCINTYRE Room #: 462-P ADM IN ..#: [id number] ������������� Admission: 12/24/18 ������������� Attend Phys: Lane Greenwood MD Discharge: ��� ������������� ��� Date of : 47 Date of Service: 12/30/18 1436 �� Report #: [id number] �������� ��������������������������������������������[id number] THIS REPORT FOR: //name// APPROVED REPORT Study performed: 12/30/2018 13:19:59 EXAM: Comprehensive 2D, Doppler, and color-flow Echocardiogram Patient Location: Echo lab Room #: 462 Status: routine BSA: 1.76 HR: 71 bpm BP: 134/55 mmHg Rhythm: NSR Other Information Study Quality: Adequate Indications Hypertension. Hx: COPD, TIA. 2D Dimensions RVDd: 34.34 mm IVSd: 10.62 (7-11mm) LVOT Diam: 19.03 (18-24mm) LVDd: 47.71 mm PWd: 10.41 (7-11mm) Ascending Ao: 33.09 (22-36mm) LVDs: 33.26 (25-40mm) Aortic Root: 32.03 mm Volumes Left Atrial Volume (Systole) Single Plane 4CH: 48.45 mL Single Plane 2CH: 65.20 mL LA ESV Index: 34.00 mL/m2 Aortic Valve AoV Peak Martin.: 1.81 m/s AO Peak Gr.: 13.11 mmHg LVOT Max P.31 mmHg LVOT Max V: 1.26 m/s REBECCA Vmax: 1.97 cm2 Mitral Valve E/A Ratio: 0.8 MV Decel. Time: 244.37 ms MV E Max Martin.: 0.95 m/s [facility] [address] [address] 2 D/M-MODE ECHOCARDIOGRAM Name: KAYLEIGH MCINTYRE [place] Room #: [facility] .R.#: [id number] ������������� Admission: 12/24/18 ������������� Attend Phys: Lane Greenwood MD Discharge: ��� ������������� ��� Date of : 47 Date of Service: 12/30/18 1436 �� Report #: [id number] �������� ��������������������������������������������[id number] MV A Martin.: 1.12 m/s MV PHT: 70.87 ms IVRT: 79.58 ms Pulmonary Valve PV Peak Martin.: 1.47 m/s PV Peak Gr.: 8.69 mmHg Pulmonary Vein P Vein S: 0.62 m/s P Vein A: 0.33 m/s P Vein D: 0.45 m/s P Vein A Dur.: 110.7 msec P Vein S/D Ratio: 1.38 Tricuspid Valve TR Peak Martin.: 3.23 m/s RAP Estimate: 5.00 mmHg TR Peak Gr.: 41.83 mmHg PA Pressure: 47.00 mmHg Left Ventricle The left ventricle is normal size. There is normal LV segmental wall motion. There is normal left ventricular wall thickness. Left ventricular systolic function is normal. LVEF is 55-60%. Mild diastolic dysfunction is present (impaired relaxation pattern). Right Ventricle The right ventricle is normal size. The right ventricular systolic function is normal. Atria Left atrium is at the upper limits of normal. The right atrium size is normal. Aortic Valve The aortic valve is normal in structure, minimally sclerotic. Trace aortic regurgitation. There is no aortic valvular stenosis. Mitral Valve Mild mitral annular calcification. Mild mitral regurgitation. Tricuspid Valve The tricuspid valve is normal in structure. Mild to moderate tricuspid regurgitation. Estimated PAP is 45mmHg. Pulmonic Valve Pulmonic valve is not well visualized. Trace pulmonic [address] [address] 2 D/M-MODE ECHOCARDIOGRAM Name: KAYLEIGH MCINTYRE JONO Room #: 462-P [facility] IN [facility]#: [id number] ������������� Admission: 12/24/18 ������������� Attend Phys: Lane Greenwood MD Discharge: ��� ������������� ��� Date of : 47 Date of Service: 12/30/18 1436 �� Report #: [id number] �������� ��������������������������������������������[id number] regurgitation. Great Vessels The aortic root is normal in size. The ascending aorta is normal in size. IVC is normal in size and collapses >50% with inspiration. Pericardium Trace pericardial effusion. <Conclusion> Left ventricular systolic function is normal. LVEF is 55-60%. There is normal LV segmental wall motion. Mild diastolic dysfunction The aortic valve is normal in structure, minimally sclerotic. Trace aortic regurgitation, no stenosis. Mild mitral annular calcification. Mild mitral regurgitation. Pulmonary artery pressure 45 mmHg Trace pericardial effusion. ��������������������������������������������� <ELECTRONICALLY SIGNED> ���������������������������������������� By: Rajan Ames MD, [facility] ��������������������������������������������� 12/30/18 1436 1436 1436 Rajan Ames MD, FACC /INF
[2018-12-30 15:07] VITALS: BP 145/58
--- NOTE | 2018-12-30 20:14 | NUR ---
PT DISCHARGED TO REHAB 5N. PT A&OX4, VSS, DENIES PAIN. FLUIDS INFUSED TODAY, DIET ADVANCED, DENIES N/V/D. NO DIFFICULTY SWALLOWING OBSERVED. FALL PRECAUTIONS IN PLACE.
--- NOTE | 2018-12-31 15:05 | PATH ---
[facility] [address] [place] [address] PATHOLOGY RPT PROCEDURE Name: KAYLEIGH SALAS JONO Room #: 462-P DIS IN M.R.#: [id number] ������������������ Admission: 12/24/18 ������������������ Date of : 47 Discharge: 12/30/18 Report #: [id number] Path Case #: [id number] [facility] Accession Number: [id number] . 01 Material submitted: . stomach - BX OF GASTRITIS TO R/O H. PYLORI . 01 Clinical history: . Preop DX: Hematemesis, dysphagia Postop DX: Bile gastritis R/O H. pylori . 02 Diagnosis: Gastric mucosa, gastritis R/O H. pylori, endoscopic biopsy: - Moderate reactive gastropathy. - Negative for intestinal metaplasia or atrophy. - Negative for Helicobacter pylori (properly controlled immunohistochemical stain performed. (IUV:aram; 12/31/2018) QMS/12/31/2018 . 02 Electronically signed: . Lesley Mccall MD, Pathologist NPI- [id number] . 01 Gross description: . Received in formalin labeled "Kayleigh Salas, Bx of gastritis," are five segments of houser-brown soft tissue measuring 0.7 x 0.7 x 0.2 cm in aggregate dimensions and ranging from 0.3 to 0.7 cm in maximum dimension. The specimen is submitted entirely in cassette A1. ([facility]; 12/30/2018) XDC/XDC . 02 Pathologist provided ICD-10: K31.9 . 02 CPT . 561666, [id number] Specimen Comment: A courtesy copy of this report has been sent to Specimen Comment: [phone], , . Specimen Comment: Report sent to ,DR LEVI / DR HERNANDEZ Performed at: [address] [id number] MD Jorge Gil MD Phone: [phone] Performed at: [address] [address] PATHOLOGY RPT PROCEDURE Name: KAYLEIGH SALAS [place] Room #: 462-P DIS IN M.R.#: [id number] ������������������ Admission: 12/24/18 ������������������ Date of : 47 Discharge: 12/30/18 Report #: [id number] Path Case #: [id number] [address] [facility], [place], [place] [id number] MD Lesley Mccall MD Phone: [phone]
== END 2018-12-30 16:40 | DRG 177 ==
LOC: ER 10:54 → 3W 13:38 → EROBS 13:38 → 3W 15:01 → 4W 12-28 10:53 → ENTRNSPT 12-30 16:24 → EDTRNSPT 12-30 16:26 → 4W 12-30 16:40
PROVIDERS: Internal Medicine; Internal Medicine Gastroenterology; Nurse Practitioner; Physician Assistant; Specialist; ADMIT Hospitalist
DX: J69.0 Pneumonitis due to inhalation of food and vomit (principal); J96.21 Acute and chronic respiratory failure with hypoxia; J96.22 Acute and chronic respiratory failure with hypercapnia; K29.01 Acute gastritis with bleeding; K80.51 Calculus of bile duct without cholangitis or cholecystitis with obstruction; K92.0 Hematemesis; J44.1 Chronic obstructive pulmonary disease with (acute) exacerbation; F17.210 Nicotine dependence, cigarettes, uncomplicated; K52.9 Noninfective gastroenteritis and colitis, unspecified; I10 Essential (primary) hypertension; G40.909 Epilepsy, unspecified, not intractable, without status epilepticus; G89.4 Chronic pain syndrome; H40.9 Unspecified glaucoma; F31.9 Bipolar disorder, unspecified; K58.9 Irritable bowel syndrome, unspecified; I25.10 Atherosclerotic heart disease of native coronary artery without angina pectoris; G43.909 Migraine, unspecified, not intractable, without status migrainosus; R13.10 Dysphagia, unspecified; K21.9 Gastro-esophageal reflux disease without esophagitis; I16.0 Hypertensive urgency; F41.9 Anxiety disorder, unspecified; Z66 Do not resuscitate; E86.0 Dehydration; Z90.49 Acquired absence of other specified parts of digestive tract; Z79.899 Other long term (current) drug therapy; Z88.0 Allergy status to penicillin; Z88.6 Allergy status to analgesic agent; Z91.041 Radiographic dye allergy status; Z99.81 Dependence on supplemental oxygen; I25.2 Old myocardial infarction; Z86.73 Personal history of transient ischemic attack (TIA), and cerebral infarction without residual deficits; Z90.711 Acquired absence of uterus with remaining cervical stump; Z88.1 Allergy status to other antibiotic agents; Z82.49 Family history of ischemic heart disease and other diseases of the circulatory system; Z83.3 Family history of diabetes mellitus; Z91.81 History of falling; Z71.6 Tobacco abuse counseling
CPT/HCPCS: 10040; 10045; 10879; 62110; 62900; 70005

== ENCOUNTER 2018-12-30 13:25 | Inpatient (IN) | payer OTHER ==
[~2018-12-30] VITALS: Ht 157.5 cm; Wt 78.5 kg
[~2018-12-30 13:25] MED LIST changes: +24HR ALLERGY REL5 MG PO; +BUPROPION HCL200 MG PO; +IBUPROFEN 600600 M1 PO; +LOPERAMIDE 2 MG2 M1 PO; +NORCO 5-325 TA1 EAC1 PO; +TEGRETOL200 MG PO; +ZOLOFT50 MG PO
[2018-12-30] MEDS ORDERED: TYLENOL325 MG PO (14:00)
[2018-12-30] MEDS ORDERED: MUCINEX600 MG PO (14:00)
[2018-12-30] MEDS ORDERED: PROTONIX40 M1 PO (14:00)
[2018-12-30] MEDS ORDERED: IPRAT-ALBUT 0.5-3 ML INH ×2 (14:00)
[2018-12-30] MEDS ORDERED: PREDNISONE 10 M10 MG PO (14:08)
[2018-12-30] MEDS ORDERED: LEVAQUIN 750 M750 MG PO (14:08)
[2018-12-30 16:45] VITALS: BP 157/89
[2018-12-30 19:27] VITALS: BP 141/68
--- NOTE | 2018-12-30 21:07 | NUR ---
ASSUMED CARE AT APPROX 1700. PATIENT A/O X4. O2 SATS MAINTIANED ON 2.5L. ADMISSION HISTORY ASSESSMENT COMPLETED BY [place] GALLEGOS RN, WHO INFORMED STAFF THAT PATIENT DID NOT WANT TO BE DNR. LADLE REPAIRER CONTACTED, STATED THAT CODE STATUS MUST BE ADDRESSED THIS EVENING. STEWARD/STEWARDESS NIGHT HOSPITALIST SUPERVISOR STITCHING DEPARTMENT CONTACTED, STATED PATIENT WOULD HAVE TO BE ASSESSED FURTHER BY SUPERVISOR STITCHING DEPARTMENT TO CLARIFY THAT PATIENT IS ORIENTED AND CAN MAKE DESICIONS FOR HERSELF, STATED PATIENT WOULD BE FURTHER ASSESSED TOMORROW. PATIENT RESTING IN BED. FALL PRECAUTIONS IN PLACE.
--- NOTE | 2018-12-31 02:56 | NUR ---
PATIENT ASSESSED AND IS ALERT X 4, BUT FORGETFUL AT TIMES. DENIES ANY SOA OR NAUSEA AT THIS TIME. TAKES DIET WELL. SCD'S IN PLACE. 02 AT 3LNC. DUE NEBS DONE AT ORDERED. LEFT FA SL THAT IS SLIGHTLY SWOLLEN, SHE REFUSED TO HAVE RN TAKE OUT. UP WITH WALKER AND ASSIST X 1 AND GAIT BELT ALSO TO BSC. ASSIST OF 1. VOIDS WELL. NO BM THIS SHIFT SO FAR. DENIES ANY PAIN. TURNS SELF IN BED. HAD HER VALUABLES LOOKED UP WITNESS X 2 STAFF MEMBERS. NAUSEA ABOUT 0000. SPRITE GIVEN AND IS FEELING BETTER NOW. CONT PLAN OF CARE. REMAINS A FULL CODE.
[2018-12-31 06:12] LABS: HEMATOCRIT 46.8 % (37.0-47.0); HEMOGLOBIN 15.5 gm/dL (12.0-15.0); MCH 33.6 pg (26.0-34.0); MCHC 33.2 g/dL (28.0-37.0); MCV 101.1 fL (80.0-100.0); RBC 4.63 mil/uL (4.20-5.00); RDW 15.3 % (10.5-14.5); WBC 7.3 thou/uL (4.0-11.0)
[2018-12-31 06:31] LABS: CALCIUM 8.2 mg/dL (8.5-10.1); CREATININE 0.5 mg/dL (0.6-1.0); POTASSIUM 3.9 mmol/L (3.5-5.1)
[2018-12-31 08:30] VITALS: BP 139/78
--- NOTE | 2018-12-31 13:32 | NUR ---
ASSUMED CARE AT APPROX 0715. PATIENT A/O X3-4. FORGETFUL AT TIMES. DENIES PAIN. UP X1 ASSIST GB AND WALKER. BLOOD GLUCOSE MONITORED. PARTICIPATED IN THERAPY. O2 SATS MAINTAINED ON 3L O2. VSS. FALL PRECAUTIONS IN PLACE. EDEMA NOTED, CHASTITY CUELLAR ORDERED. PATIENT REPORTED SHE WILL NEED A NEW PAIR- TO BE ORDERED TODAY. C/O NAUSEA- PRN IV ZOFRAN ADMINSITERED THIS AM, PATIENT REPORTS SOME RELIEF. WILL CONTINUE TO MONITOR.
--- NOTE | 2018-12-31 13:52 | NUR ---
Nutrition: Pt admitted with medical complexity, general debility to rehab unit. Seen due to high risk trigger for weight loss, poor intake. No weight loss per records-pt reports stable weights. pt eating approx 50% of meals. S/P ERCP, spincterectomy, stent on 12/29. Currently on carb controlled diet with no hx of DM and good BG control. Is on prednisone. Would consider liberalize diet if BG remains controlled. Low risk.
--- NOTE | 2018-12-31 14:00 | NUR ---
cm visited with pt while she up in recliner chair, noted o2 per nc. intro to cm, team meeting and dcp. pt a & o x 3 with some forgetfulness. preferrs going by louis. " yes on 3L o2 at bedtime and same for activity."/louis. pt reported " live with maldonado, we both drive, have 4 ww, grab bars, manage own medication, have oxygen, and btx machine but do not use it. no falls or injury in last year. no pcp in over year. ken. supposed to be seeing dr preston who is with their [facility]."/desirae. will cont following as needed for dc needs.
[2018-12-31 19:38] VITALS: BP 125/94
--- NOTE | 2019-01-01 03:38 | NUR ---
assumed care at approx 1900 evening 12/31. pt sitting up in bed at change of shift resting. 02 at 3L per n/c. pt alert and oriented x4, appropriate and cooperative. pt given hs meds and tolerated well. pt up to bsc with 1 assist. pt appears to be sleeping soundly with hourly rounding checks. bed alarm on and call light in reach. will continue to monitor.
[2019-01-01 05:57] LABS: TSH 1.882 uIU/mL (0.358-3.740)
[2019-01-01 08:37] VITALS: BP 146/68
--- NOTE | 2019-01-01 12:33 | NUR ---
ASSUMED CARES AT 0700. PT AWAKE, ALERT AND ORIENTED*4. C/O GENERALIZED ABDOMINAL PAIN 12/22, PAIN MEDICATION ADMINISTERED NEEDED. PT DENIES N&V AT THIS TIME. ABDOMEN REMAINS SOFT BUT DISTENDED, LAST BM 12/30, BS ACTIVE*4. VITALS REMAIN STABLE. PT CONTINUES TO HAVE BRUISES ON ARMS AND LOWER ABDOMEN. EDEMA IN BLE, EXTREMITIES ELEVATED WHILE AT REST. PT WORKING WITH ST FOR SWALLOW DURING MEALS. UP WITH 1 MIN ASSIST, GAITBELT AND WALKER. Q1H VISUAL CHECKS. CALL LIGHT WITHIN REACH. FALL PRECAUTIONS IN PLACE
[2019-01-01 19:30] VITALS: BP 133/75
[2019-01-02 08:48] VITALS: BP 146/58
--- NOTE | 2019-01-02 12:48 | NUR ---
ASSUMED CARES AT 0700. PT AWAKE, ALERT AND ORIENTED*4. DENIES PAIN AT THIS TIME. VITALS REMAIN STABLE. ABDOMEN FIRM AND DISTENDED, PT DENIES ABDOMINAL PAIN, N&V&CONSTIPATION. LAST BM 12/30. BRUISES REMAIN ON ARMS AND LOWER ABDOMEN. CONTINUES TO HAVE EUGENIO LE AND BUE EDEMA. UP WITH 1 MIN ASSIST, GAITBELT AND WALKER AND TOLERATED WELL. Q1H VISUAL CHECKS CALL LIGHT WITHIN REACH. FALL PRECAUTIONS IN PLACE
[2019-01-02 19:35] VITALS: BP 139/64
--- NOTE | 2019-01-03 04:21 | NUR ---
PATIENT ALERT AND ORIENTED X4. C/O PAIN IN ABD AT 1999, MED GIVEN. UP TO BSC WITN ASSIST OF 1. SLEPT OFF AND ON DURING NIGHT.
[2019-01-03 07:41] VITALS: BP 145/65
--- NOTE | 2019-01-03 09:49 | NUR ---
ASSUMED CARES AT 0700. PT AWAKE, ALERT AND ORIENTED *4. C/O ABDOMINAL PAIN/ DISCOMFORT 08/24, ABDOMEN FIRM AND DISTENDED, PT REPORTS BM THIS AM AFTER BREAKFAST (LARGE, FORMED). LS COARSE, DIMINISHED IN THE BASES, O2 SATS >95% ON 2L OXYGEN. BLE EDEMA, CHASTITY HOSE IN PLACE AND EXTREMITIES ELEVATED. CONTINUES TO HAVE BRUISING IN ARMS AND LOWER ABDOMEN. UP WITH 1 MIN ASSIST, GAITBELT AND WALKER AND TOLERATED WELL. Q1H VISUAL CHECKS. CALL LIGHT WITHIN REACH. FALL PRECAUTIONS IN PLACE.
[2019-01-03 19:30] VITALS: BP 142/88
--- NOTE | 2019-01-04 03:13 | NUR ---
assumed care at approx 1900 evening 01/03. pt lying in bed with head of bed elevated alert and oriented x4, pleasant and cooperative. 02 at 2L per n/c. resp tx as ordered. pt assist up to bsc to void and have small bm. pt appears to be sleeping soundly with hourly rounding checks. bed alarm on and call light in reach. will continue to monitor.
[2019-01-04 09:30] VITALS: BP 110/52
--- NOTE | 2019-01-04 12:28 | NUR ---
ASSUMED CARE AT APPROX 0715. PATIENT A/0 X4. C/O ABDOMINAL PAIN 11/21, PATIENT STATED SHE WOULD LIKE TYLENOL "AFTER LUNCH." PATIENT PARTICIPATED IN SATURDAY PT SESSION. VSS DANIEL 3L O2 PER NC. PATIENT UP X1 ASSIST GB AND WALKER. ROUNDED ON HOURLY. FALL PRECAUTIONS IN PLACE. CUES TO TURN/REPOSITION Q2. BLE EDEMA NOTED, CHASTITY HOSE IN PLACE. RESTING IN RECLINER, UP TO CHAIR FOR MEALS. WILL CONTINUE TO MONITOR.
[2019-01-04 20:15] VITALS: BP 131/68
--- NOTE | 2019-01-05 03:43 | NUR ---
ASSUMED CARE AT 1900, ASSESSMENT COMPLETED. PT REPORTS LOW LEVEL PAIN IN RLQ OF ABD. DENIES SOB. C/O FEELING NAUSEATED, GAVE IV ZOFRAN AT HS. PT REPORTS CONCERN THAT OVER THE LAST WEEK SHE HAS HAD WORSENING TREMORS, NOTEABLY IN THE RIGHT ARM; SHE WAS EMOTIONAL AT SHIFT CHANGE, SAYING THAT SHE WAS HAVING TROUBLE EATING BECAUSE OF HOW MUCH HER ARM WAS SHAKING. WILL COMMUNICATE CONCERNS TO DAY SHIFT AND PHYSICIAN. FALL PRECAUTIONS IN PLACE, CALLS APPROPRIATELY FOR ASSISTANCE TO TOILET. NO OTHER CONCERNS, WILL CONTINUE TO MONITOR.
[2019-01-05 06:09] LABS: ALBUMIN 2.6 g/dL (3.4-5.0); DIRECT BILIRUBIN < 0.1 mg/dL (<0.1-0.3); SGOT 15 U/L (15-37); SGPT 16 U/L (30-65); TOTAL BILIRUBIN 0.4 mg/dL (<0.1-1.0); TOTAL PROTEIN 4.8 g/dL (6.4-8.2)
[2019-01-05 07:50] VITALS: BP 136/55
[2019-01-05 08:00] VITALS: BP 136/55
--- NOTE | 2019-01-05 11:50 | NUR ---
ASSUMED CARES AT 0700. REPORTS DIDN'T SLEEP WELL LAST NIGHT. HAS FLAT AFFECT, SAD AND DEPRESSED. ON ANXIETY MED SCHEDULE BUT NOT SLEEPING AID. WILL ASK DEBRA FOR SLEEPING MED. PT AWAKE, ALERT AND ORIENTED*4. C/O ABD PAIN AT THIS TIME 12/22, OFFERED PRN TYLENOL AND SHE TOOK IT. VITALS REMAIN STABLE SAT 92-94% ON 3L. ENCOURAGED PT TO USE IS AND DEEP BREATHING. ABDOMEN FIRM AND DISTENDED, LAST BM WAS YESTERDAY. PT REPORTS SOMETIMES SHE CONSTIPATES FOR COUPLE DAYS AND HAS LOOSE STOOLS AFTER THAT. BS IS PRESENT NOW. C/O NAUSEA THIS AM, PRN ZOFRAN GIVEN. FEELS BETTER NOW. OFFERED SUPPORTIVE CARE. AND LISTENED TO PT. SHE HAS BEEN DEPRESSED THAT HER ONLY DAUGHTER TOOK HER LIFE THAT MADE HER SAD AND DEPRESSED. OFFERED PRAYER AND SPIRITUAL SUPPORT. PT SMILED AND FEELS LITTLE BETTER. OT GAVE PT SHOWER THIS AM. CONTINUES TO HAVE MILD EDEMA BLE, TEDHOSE IN PLACED. UP WITH 1 MIN ASSIST, GAITBELT AND WALKER AND TOLERATED WELL. Q1H VISUAL CHECKS CALL LIGHT WITHIN REACH. FALL PRECAUTIONS IN PLACE. PT IS WORKING WITH ST AT THIS MOMENT.
[2019-01-05 19:10] VITALS: BP 132/50
--- NOTE | 2019-01-06 02:21 | NUR ---
Assumed pt care at 1900.A/OX4,denied pain on assessment.VSS. Up with assist of 1 to [facility] voiding without difficulty. Pt declined taking Miralax at HS.Medicated with Xanax as ordered at HS and has been resting with eyes closed. Pt does have a non-productive cough,on O2 @ 2L/NC. Fall precautions in place,will continue to monitor pt.
[2019-01-06 07:50] VITALS: BP 130/57
[2019-01-06 08:23] VITALS: BP 130/57
--- NOTE | 2019-01-06 08:28 | NUR ---
ASSUME PT CARE AT 0700. VSS ON 2L OF OXYGEN. REPORTS SLEPT BETTER LAST NIGHT. BS 60 THIS AM. ORANGE JUICE GIVEN AND BREAKFAST TRAY WILL RECHECK BS LATER. DENIES NAUSEA. C/O SORE PAIN ON RIGHT HAND WHEN EATING BREAKFAST. MORNING MEDS AND PRN TYLENOL GIVEN. PT REFUSED MUCINEX SINCE HAS NO COUGH. OFFERED SUPPORTIVE CARE. ENCOURAGED PT TO VOICE HER NEEDS. FALL PRECAUTION IN PLACE, CALL LIGHT WITH IN REACH. PT CALL APPROPRIATELY. REASSESSMENT PER CHART. LAST BM WAS 2 DAYS AGO. LAXATIVES GIVEN. WILL CONTINUE TO MONITOR BM.
--- NOTE | 2019-01-06 13:40 | NUR ---
team, recommendation 01/13, home with hh ( nursing, pt, ot, st ), no dme.
[2019-01-06 19:30] VITALS: BP 136/67
--- NOTE | 2019-01-07 01:56 | NUR ---
assumed care at approx 1900 evening 01/06. pt alert and oriented x4, appropriate and cooperative. 02 at 2L per n/c. pt appropriate and cooperative stating she wishes she could be discharged before next week. emotional support and active listening for pt. pt took hs meds with water tolerating well. pt with resp tx as ordered. pt appears to be sleeping fairly well off and on. bed alarm on and call light in reach. will continue to monitor.
[2019-01-07 07:40] VITALS: BP 141/60
--- NOTE | 2019-01-07 13:34 | NUR ---
Nutrition: pt admitted with med complexity, general debility to rehab unit. Previously on carb controlled diet, now on regular. Good BG control, no DM. On steroids. Ensure was ordered BID but pt wants this D/C'ed as intake is good, 75-100% of meals. On B 12 and folic acid supplementation. No new weight but previously reported as stable. Low nutrition risk.
--- NOTE | 2019-01-07 14:41 | NUR ---
Patient participated in community reintegration on 01/07/19 with Speech Therapy. Refer to documentation by
--- NOTE | 2019-01-07 15:59 | NUR ---
ASSUMED CARE AT APPROX 0715. PATIENT A/O X3. FORGETFUL AT TIMES. NEEDS CUES FOR SAFETY, ESPECIALLY LOCKING BRAKES ON WALKER. PATIENT C/O FEELING DROWSY. MEDS ADJUSTED PER HOSPITALIST. PATIENT ALSO NOTED TO HAVE INCREASED COUGH, O2 SATS MAINTAINED ON 2L O2 PER NC. F/U CXR ORDERED, AWAITING REPORT. PATIENT HAS HAD DIARRHEA X2 THIS SHIFT, WELL MULTIPLE FORMED BM'S. GI ROUNDED ON PATIENT, ORDERS RECEIVED, IMMODIUM ADMINISTERED. PATIENT HAS REPORTED SOME RELIEF BY THIS AFTERNOON. FALL PRECAUTIONS IN PLACE. PATIENT ROUNDED ON HOURLY. WILL CONTINUE TO MONITOR.
--- NOTE | 2019-01-07 16:41 | NUR ---
Patient participated in community reintegration on 01/07/19 with SPEECH THERAPIST. Refer to documentation by SPEECH THERAPIST.
[2019-01-07 19:30] VITALS: BP 116/66
--- NOTE | 2019-01-07 22:25 | NUR ---
ASSUMED CARE OF PT AT 1915. PT IS A&OX4. IS ON 2.0L OF O2/NC. IS STABLE. DENIES PAIN AT THIS TIME. IS UP WITH 1 ASSIST, GB, & ROLLER WALKER. FALL PRECAUTIONS & HOURLY ROUNDING MAINTAINED. LABS & VITALS REVIEWED. WILL CONTINUE TO MONITOR. PT IS IN BED. CALL LIGHT WITHIN REACH.
[2019-01-08 07:34] VITALS: BP 126/52
[2019-01-08 13:20] VITALS: BP 126/52
--- NOTE | 2019-01-08 16:01 | NUR ---
ASSUMED CARE AT APPROX 0715. PATIENT A/O X4. FORGETFUL. DENIES PAIN. C/O FURTHER BOWEL MOVEMENTS. GI NOTIFIED, LOPERIMIDE GIVEN PER ORDERS. FALL PRECAUTIONS IN PLACE. VSS. PARTICIPATED IN THERAPY. SATS MAINTAINED ON 2L OF OXYGEN. LEGS ELEVATED, TEDHOSE IN PLACE FOR LE EDEMA. AM BLOOD GLUCOSE WAS 96. PATIENT UP TO CHAIR FOR MEALS. ROUDED ON HOURLY. WILL CONTINUE TO MONITOR.
[2019-01-08 19:00] VITALS: BP 123/53
[2019-01-09 06:11] LABS: HEMATOCRIT 39.7 % (37.0-47.0); HEMOGLOBIN 13.3 gm/dL (12.0-15.0); MCH 33.3 pg (26.0-34.0); MCHC 33.5 g/dL (28.0-37.0); MCV 99.2 fL (80.0-100.0); PLATELET COUNT 111 thou/uL (150-400); RDW 14.4 % (10.5-14.5); WBC 4.2 thou/uL (4.0-11.0)
--- NOTE | 2019-01-09 06:23 | NUR ---
ASSESSMENT: PT REMAIN ALERT AND ORIENT TIMES FOUR, SOME FORGETFULNESS AT TIMES. VSS, AFEBRLE. UP TO BSC AND BR WITH GB. DENIES PAIN. 2 LITERS PER NC. PRODUCTIVE COUGH, ENCOURAGED NOT TO SWALLOW SPUTUM. SLOW PROGRESS TOWARDS DC GOALS, WILL CONTINUE TO MONITOR.
[2019-01-09 06:25] LABS: CREATININE 0.6 mg/dL (0.6-1.0); MAGNESIUM 1.9 mg/dL (1.8-2.4)
[2019-01-09 06:35] LABS: CALCIUM 8.8 mg/dL (8.5-10.1)
[2019-01-09 06:40] LABS: ABSOLUTE NEUTROPHILS 2.9 thou/uL (1.4-8.2)
[2019-01-09 06:41] LABS: PLATELET ESTIMATE DECREASED
[2019-01-09 07:54] VITALS: BP 117/55
--- NOTE | 2019-01-09 13:09 | NUR ---
ASSUMED CARE AT APPROX 0715. REPORTS SLEPT GOOD. PATIENT A/O X3. FORGETFUL AT TIMES. ABLE TO VOICE HER NEEDS. PATIENT ALSO NOTED TO HAVE INCREASED COUGH, O2 SATS MAINTAINED ON 2L O2 PER NC. ENCOURAGED PT TO DEEP BREATHING AND I.S. REPORTS SHE HAD DIARRHEA X5 YESTEDAY. REFUSED MIRALAX THIS AM. HAD SOFT BM NOW. GI ROUNDED ON PATIENT. PT IS ONLY ON MIRALAX DAILY AND HOLD FOR LOOSE STOOL. OFFERED SUPPORTIVE CARE. ENCOURAGED PT TO VOICE HER NEEDS. MORNING MEDS GIVEN. REASSESSMENT PER CHART. PT CONTINUE WITH THERAPY AND PROGRESS TO DISCHARGE GOALS. SHE SAID SHE GETS STRONG EVERYDAY. HER ANXIETY AND DEPRESSION IS GETTING BETTER. FALL PRECAUTIONS IN PLACE. PATIENT ROUNDED ON HOURLY. WILL CONTINUE TO MONITOR.
[2019-01-09 18:09] VITALS: BP 122/60
[2019-01-09 20:21] VITALS: BP 111/53
--- NOTE | 2019-01-10 03:22 | NUR ---
ASSUMED CARES AT 1900. PT IN CHAIR WATCHING TV, A/O*4. C/0 ABDOMINAL PAIN/DISCOMFORT. ABDOMEN SOFT BUT DISTENDED, BS ACTIVE*4, REPORTED A BM TODAY AND 5LOOSE BM YESTERDAY, TYLENOL ADMINISTERED AT BEDTIME. SLEPT AT 1100, UP TO THE BATHROOM *2. VITALS REMAINED STABLE. CONTINUES TO HAVE BRUISING ON ARMS. BLE EDEMA, CHASTITY HOSE REMOVED AT BEDTIME. Q1H VISUAL CHECKS. CALL LIGHT WITHIN REACH. FALL PRECAUTIONS IN PLACE
[2019-01-10 07:30] VITALS: BP 118/64
--- NOTE | 2019-01-10 09:31 | NUR ---
ASSUMMED CARE AT 0700. PATIENT IS ALERT AND ORIENTED X4. PATIENT WHITNEY'S, IRON CUTTER ARE EQUAL. LUNGS ARE CLEAR AND DEMINISHED. PATIENT CONTINUES ON 02 2L PER N/C AND RESPIRATORY TX. PATENT ABD IS ROUNDED. PATIENT CONTINUES TO HAVE REGULAR BM'S AND IS REFUSING HER MIRALAX. PATIENT IS UP WITH ASSIST OF 1 STAFF WITH GAIT BELT AND WALKER. FALL AND SAFETY PROTOCOLS IN PLACE. DENIES ANY PAIN. CONTINUES TO PROGRESS TOWARDS D/C GOALS. WILL CONTINUE TO MONITER.
[2019-01-10 19:30] VITALS: BP 129/52
--- NOTE | 2019-01-11 00:34 | NUR ---
PT ASSESSMENT COMPLETED AND VSS. MEDS GIVEN ORDERED AND WELL TOLERATED. FALL PRECAUTIONS IN PLACE. LOOSE STOOLS TODAY. IMODIUM HELPFUL. PT SLEEPING WELL. DENIES NEEDS. WILL CONTINUE TO MONITOR FREQUENTLY.
[2019-01-11 08:28] VITALS: BP 120/78
--- NOTE | 2019-01-11 15:44 | HC ---
[facility] [place] [address] CONSULTATION Name: KAYLEIGH MCINTYRE Room #: 509-P [facility] IN M.R.#: [id number] Admission: 12/30/18 ������������������ Attend Phys: Elroy Guzman MD Discharge: ������������������ Date of : 47 Report #: [id number] THIS REPORT FOR: //name// CC: Elroy Murphy DATE OF SERVICE: 01/03/2019 BEHAVIORAL STATUS EXAMINATION ATTENDING PHYSICIAN: Elroy Guzman MD ADULT EDUCATION INSTRUCTOR: Cam Peoples, PhD CLINICAL PRESENTATION: The patient is a 73-year-old female admitted to [facility] for comprehensive inpatient rehabilitation program. She was admitted for treatment of medical complexity with generalized debility. Her assessment on admission to the rehabilitation unit included Cholelithiasis with ductal dilation, aspiration pneumonia, chronic respiratory failure, COPD, colitis, occult-positive, hypertension, tobacco abuse and seizure disorder. She was reported to have been living at her home when she began vomiting, and 911 called. Neuropsychological consultation was requested to provide assistance in the assessment of cognitive and emotional status and provide recommendations and services. Refer to medical records for complete summary of her medical condition, history and medications. Prior to this most recent medical event, the patient was living independently at her home with her . She was independent with all instrumental activities of daily living. The patient reports having had 1 daughter. Her daughter from suicide. Most recently, her stepson's in 08/2018. The patient is a high school graduate. 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 TECHNIQUES UTILIZED: Clinical interview, review of medical records, staff consultation and behavioral observation, mini mental status exam 2 standard version and clock drawing. EXAMINATION FINDINGS: The patient was alert and cooperative with the assessment. She accurately described events surrounding her admission. There is no evidence of aphasia. She does not report auditory or visual hallucinations, but has a prior diagnosis of bipolar disorder. The bipolar disorder is defined primarily by depression. She reports continued grief over the loss of her daughter. She found the daughter in the home after [facility] [address] [address] CONSULTATION Name: KAYLEIGH MCINTYRE JONO Room #: 509-P [facility] IN M.R.#: [id number] Admission: 12/30/18 ������������������ Attend Phys: Elroy Guzman MD Discharge: ������������������ Date of : 47 Report #: [id number] carbon monoxide poisoning. She describes her symptoms to include depression and anxiety. She does not report a history of alcohol or drug abuse. Her sleep, appetite and memory are reported as within normal limits. Her performance on the MMSE 2 brief version was in the mild range of impairment with a raw score of 13/16 and a T score of 36. She was 3/3 for initial registration, 5/5 for orientation to time and place and 0/3 for immediate recall of 3 items after a brief time delay and distraction. Performance on the MMSE 2 standard version was within normal limits with a raw score of 26/30 and a T score of 46. She was 4/5 for serial 7's, 2/2 for naming, 1/1 for repetition, 3/3 for comprehension. She could read and follow a single command and write a sentence. She was also able to copy a simple geometric design. While clock drawing is within normal limits, there was evidence of perseverative responses in number placement and organization. The patient is presenting with some mild deficits in cognition. Difficulty with memory and executive functioning are suggested. Additionally, mood appears depressed. DIAGNOSTIC IMPRESSION: Bipolar disorder, primarily depressed (by history). 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 RECOMMENDATIONS: Continued psychological support to assist in adjustment. The patient will benefit from verbal praise and complements for participation in therapies. Encouragement for taking initiative along with assistance identifying progress will also assist in her overall participation in her rehab program. Thank you very much for allowing me to provide the consultation on this patient. ��������������������������������������������� <ELECTRONICALLY SIGNED> ���������������������������������������� By: Cam Peoples, PhD ��������������������������������������������� 01/11/19 1544 [id number] 1554 Cam Peoples, PhD /nt
--- NOTE | 2019-01-11 20:07 | NUR ---
ASSUMED CARE AT APPROX 0715. PATIENT A/O X3. FORGETFUL, IMPULSIVE. C/O GI UPSET AND OCCASIONAL ABDOMINAL PAIN. UP X1 ASSIST GB AND WALKER, AMBULATED TO BATHROOM, O2 SATS MAINTAINED ON 2L. VSS. BLOOD SUGAR MONITORED, 85 THIS AM. MEDS GIVEN PER ORDERS. PATIENT C/O HEADACHE, TYLENOL ADMINSTERED, REPORTED RELIEF OF PAIN. BED BATH WITH SET UP ASSIST IN RECLINER, PATIENT DRESSED HERSELF WITH SUPERVISION AND OCCASIONAL VERBAL CUES/REMINDERS. FALL PRECAUTIONS IN PLACE. ROUNDED ON HOURLY. RESTING IN BED AT CHANGE OF SHIFT.
[2019-01-11 20:42] VITALS: BP 135/70
--- NOTE | 2019-01-12 04:23 | NUR ---
PT ASSESSMENT COMPLETED AND VSS. MEDS GIVEN ORDERED AND WELL TOLERATED. FALL PRECAUTIONS IN PLACE. UP TO THE BATHROOM WITH ASST/GAIT/WALKER/02. STEADY. VOINING MODERATE AMOUNT OF YELLOW URINE. C/O LOOSE STOOL DURING THE DAY, GAS PAIN, AND ALLERGIES. GAVE PT PRN MEDICATIONS ORDERED FOR THESE ISSUES AND SHE IS FEELING MUCH BETTER AT THIS TIME. SLEEPING WELL. SAT WNL ON NC. PT WANTS TO ASK DR ABOUT GETTING A NICOTINE PATCH FOR HOME SINCE SMOKES AND SHE DOES NOT WANT TO START AGAIN. WILL CONTINUE TO MONITOR FREQUENTLY.
[2019-01-12 07:20] VITALS: BP 106/62
--- NOTE | 2019-01-12 12:40 | NUR ---
ASSUMED CARES AT 0700. PT AWAKE, ALERT AND ORIENTED*4. DENIES PAIN. DENIES N&V, REPORTS *2 DIARRHEA THIS AM, IMMODIUM ADMINISTERED. ABDOMEN IS DISTENDED, SOFT, BS ACTIVE*4. LS COARSE, SATS > 95% ON 2L OXYGEN. HS STABLE, BLE EDEMA, EXTREMITIES ELEVATED AND CHASTITY HOSE IN PLACE. UP WITH 1 MIN ASSIST, GAITBELT AND WALKER AND TOLERATED WELL. PT HAD A FEW QUESTIONS REGARDING DC TOMORROW, ADDRESSED SOME: NICOTENE PATCH, INFORMATION ON QUITING SMOKING AND MANAGING DIARRHEA AT HOME. Q1H VISUAL CHECKS. CALL LIGHT WITHIN REACH. FALL PRECAUTIONS IN PLACE
[2019-01-12 21:29] VITALS: BP 121/51
--- NOTE | 2019-01-13 03:38 | NUR ---
ASSUMED CARES AT 1900. VSS ON 2L OF OXYGEN. DAY NURSE REPORTS PT HAD 2 DIARRHEA THIS AM, AND IMMODIUM WAS GIVEN. DENIES NEED FOR LAXATIVE AT THIS SHIFT. ABDOMEN IS DISTENDED, SOFT, BS ACTIVE X 4 C/O DISCOMFORT, PRN SIMETHOCONE GIVEN PER REQUEST. LS COARSE AND WHEEZING, DENIES SOB AND SAID I HAVE ASTHMA BUT MY BREATHING IS GETTING BETTER. BLE EDEMA IS BETTER EXTREMITIES ELEVATED AND CHASTITY HOSE REMOVED AT BEDTIME. UP WITH 1 MIN ASSIST, GAITBELT AND WALKER AND TOLERATED WELL. PT HAD A FEW QUESTIONS REGARDING DC TOMORROW, ADDRESSED SOME: NICOTENE PATCH, INFORMATION ON QUITING SMOKING AND MANAGING DIARRHEA AT HOME. WILL GIVE REPORT TO DAY NURSE TO TALK TO DEBRA. OFFERED SUPPORTIVE CARE, REASSESSMENT PER CHART. NIGHT MEDS GIVEN ORDERED. PT HAS BEEN RESTING WELL, SLEEPING SOUNDLY AT THIS MOMENT. Q1H VISUAL CHECKS. CALL LIGHT WITHIN REACH. FALL PRECAUTIONS IN PLACE. WILL CONTINUE TO MONITOR.
[2019-01-13 07:10] VITALS: BP 117/50
[2019-01-13] MEDS ORDERED: IPRAT-ALBUT 0.5-3 ML INH (09:26)
[2019-01-13] MEDS ORDERED: VITAMIN B-12500 MCG PO (09:26)
[2019-01-13] MEDS ORDERED: MUCINEX600 MG PO (09:26)
[2019-01-13] MEDS ORDERED: GABAPENTIN 100100 MG PO (09:26)
[2019-01-13] MEDS ORDERED: MIRALAX17 GM PO (09:26)
[2019-01-13] MEDS ORDERED: FLONASE 0.05%50 MCG NASAL (09:26)
[2019-01-13] MEDS ORDERED: FOLIC ACID1 MG PO (09:26)
[2019-01-13] MEDS ORDERED: ERYTHROMYCIN250 M1 PO (09:51)
[2019-01-13 11:12] VITALS: BP 126/52
[2019-01-13] MEDS ORDERED: LOPERAMIDE 2 MG2 M1 PO (11:41)
[2019-01-13] MEDS ORDERED: NICOTINE TRANSD14 M1 TRANSDERM (11:41)
--- NOTE | 2019-01-13 13:23 | NUR ---
team meeting, cont with dc today home with chcs, will transport her home
[2019-01-13 13:40] VITALS: BP 126/52
--- NOTE | 2019-01-13 14:11 | NUR ---
ASSUMED CARE AT 0700. PATIENT IS ALERT AND ORIENTED X4. PATIENT WHITNEY'S, PUBLICITY AGENT ARE EQUAL. LUNGS ARE CLEAR. ABD IS SOFT WITH BSX4 . UP TO THE BATHROOM WITH ASSIST OF 1 STAFF AND GAIT BELT. PATIENT HAD BM AND VOIDED LALA COLORED URINE. FALL AND SAFETY PROTOCOLS IN PLACE. DENIES PAin AT THIS TIME. WILL CONTINUE TO MONITER. PATIENT GIVEN IMMODIUM PER REQUEST.
--- NOTE | 2019-01-13 14:14 | NUR ---
DISCHARGE INSTRUCTIONS GIVEN . PATIENT VERBALIZED UNDERSTANDING OF INSTRUCTIONS. PATIENT LEFT UNIT PER W/C WITH D/C INSTRUCTIONS, SCRIPS, AND ALL OF HER PERSONAL BELONGINGS.
--- NOTE | 2019-01-16 10:01 | H ---
[facility] [place] [address] HISTORY AND PHYSICAL Name: KAYLEIGH MCINTYRE Room #: 509-P [facility] IN M.R.#: [id number] Admission: 12/30/18 ������������������ Attend Phys: Elroy Guzman MD Discharge: 01/13/19 ������������������ Date of : 47 Report #: [id number] THIS REPORT FOR: //name// CC: Elroy Murphy DATE OF SERVICE: 12/31/2018 HISTORY AND PHYSICAL/POST ADMISSION PHYSICIAN EVALUATION HISTORY OF PRESENT ILLNESS: The patient is a 73-year-old white female originally admitted to [facility] on 12/24/2018 with increased nausea, coffee-ground emesis, noted to have pneumonia. She has a prior history of O2 dependent COPD. She was noted to have choledocholithiasis with ductal dilatation on CT. Her respiratory status need to be stabilized and she underwent ERCP with sphincterotomy completed, but the stone noted to be engaged in a basket. She also underwent an EGD on 12/29/2018 that showed bile reflux with gastroparesis. GI recommendations to repeat ERCP in 3 months to evaluate for stones and continue the PPI. The patient has been treated for aspiration pneumonia, noted to have medical complexity with generalized debilitation and has been admitted for acute in-hospital inpatient rehabilitation. PAST MEDICAL HISTORY: Includes O2 dependent COPD on 3 liters, asthma, prior right-sided frontal subdural hematoma back in 2016. Possible seizure disorder, on Tegretol. ALLERGIES: Noted to be IODINE, PENICILLIN AND ASPIRIN have caused stomach upset. MEDICATIONS: Please see the full medication listing. This includes vitamins, herbals, and supplements per report. SOCIAL HISTORY: Lives in a house with her , five steps in, plus another 6 steps inside. This is a split level. She lives in [facility]. She premorbidly was ambulatory without gait aids, although she did tend to furniture walker. She was on 3 liters. REVIEW OF SYSTEMS: No fever or chills. No swallowing issues at this point. No chest pain, shortness of breath, abdominal discomfort. No changes in bowel or bladder. No focal extremity pain complaints. Has generalized complaints of weakness. PHYSICAL EXAMINATION: GENERAL: A 73-year-old white female in no obvious distress. VITAL SIGNS: Last recorded temperature 98.1, pulse 84, respirations 20, and blood pressure 141/68. She is sleepy, but easily arouses. [facility] [address] [place] [address] HISTORY AND PHYSICAL Name: KAYLEIGH MCINTYRE Room #: 509-P [facility] IN [facility].#: [id number] Admission: 12/30/18 ������������������ Attend Phys: Elroy Guzman MD Discharge: 01/13/19 ������������������ Date of : 47 Report #: [id number] HEENT: Facies appeared symmetric. CHEST: Sounded clear to auscultation. She may have some mild decreased breath sounds throughout. CARDIOVASCULAR: Regular rate and rhythm. ABDOMEN: Bowel sounds positive, nontender. GENITOURINARY AND RECTAL: Deferred. NEUROLOGIC: She is on nasal prong O2. She appears appropriate with her responses. She has functional range of motion of upper extremity strength grade 4-/5. DTRs are trace to 1. Lower extremities, no focal calf swelling, and functional range of motion with strength grade 3+/5. DTRs are trace to 1. Functionally, she has been needing assistance with basic transfers and mobility issues. ASSESSMENT: A 73-year-old white female with the following problem list: 1. Medical complexity with generalized debilitation. 2. Choledocholithiasis with ductal dilatation. She underwent the EGD and ERCP with results as noted above. 3. Aspiration pneumonia. 4. Chronic respiratory failure. 5. Chronic obstructive pulmonary disease. 6. Colitis occult positive. 7. Hypertension. 8. Tobacco abuse. 9. Seizure disorder. PLAN: The patient is admitted for acute in-hospital inpatient rehabilitation. From a postadmission physician evaluation perspective, there are no relevant changes since the preadmission screening. Please see the above review of prior and current medical and functional conditions and comorbidities. Please see the patient's previous and current functional status. As far as risk of complications, the patient has multiple medical comorbidities as noted above. The initial plan of care involves the interdisciplinary acute inpatient rehabilitation program with goal maximizing the patient's functional independence, so that she can hopefully return back to her prior living situation. Measurable functional goals will be for the patient to become modified and independent with transfers, mobility, ADLs, so she can return back to the home setting. Prognosis is reasonably good with estimated length of stay at least 10 days to 2 weeks pending progress. Potential barriers would include her multiple medical comorbidities and decreased functional status. The patient meets diagnostic criteria for an acute in-hospital inpatient rehabilitation stay. She meets the medical necessity criteria and we will have the multiple consultant intern physicians continue to follow. She does have the [facility] [address] [place] [address] HISTORY AND PHYSICAL Name: KAYLEIGH MCINTYRE Room #: 509-P [facility] IN M.R.#: [id number] Admission: 12/30/18 ������������������ Attend Phys: Elroy Guzman MD Discharge: 01/13/19 ������������������ Date of : 47 Report #: [id number] tolerance for therapies and has appropriate discharge goals back to the home setting. ��������������������������������������������� <ELECTRONICALLY SIGNED> ���������������������������������������� By: Elroy Guzman MD ��������������������������������������������� 01/16/19 1001 0943 1018 Elroy Guzman MD /nt
--- NOTE | 2019-01-16 10:01 | PLAN ---
[facility] [place] [address] REHAB UNIT PLAN OF CARE Name: KAYLEIGH MCINTYRE Room #: 509-P [facility] IN M.R.#: [id number] Admission: 12/30/18 ������������������ Attend Phys: Elroy Guzman MD Discharge: 01/13/19 ������������������ Date of : 47 Report #: [id number] THIS REPORT FOR: //name// CC: Elroy Murphy DATE OF SERVICE: 01/02/2019 PROGRESS NOTE/OVERALL PLAN OF CARE SUBJECTIVE: The patient was seen back today in followup. She is in no distress. She has had some constipation. She notes that mag citrate has been given. She is on nasal prong O2. Transfers are min assist, gait 90 feet contact guard with a front-wheeled walker. In occupational therapy, lower body dressing is min assist. She does have some mild comprehensive deficits with speech therapy involved. [id number]-[id number] cognitive deficits with severe memory noted. ASSESSMENT: A 73-year-old white female with the following problem list: 1. Medical complex with generalized debilitation. 2. Choledocholithiasis with ductal dilatation. She underwent EGD and ERCP. 3. Aspiration pneumonia. 4. Chronic respiratory failure. 5. Chronic obstructive pulmonary disease. 6. Colitis occult positive. 7. Hypertension. 8. Tobacco abuse. 9. Seizure disorder. PLAN: The overall plan of care is based on the preadmission screen, post-admission physician evaluation and information garnered from therapy assessments. 1. Estimated length of stay is probably 10 days to 2 weeks pending progress. 2. Medical prognosis is reasonably good. 3. Anticipated interventions includes the interdisciplinary acute inpatient rehabilitation program with the goal maximizing the patient's functional independence, so that she can hopefully return back to her prior living situation. 4. Discharge destination would be back to the home setting where she lives with her . 5. Expected therapy by discipline includes PT, OT and speech 1 hour per day, each five days a week throughout the duration of the acute inpatient [address] [address] REHAB UNIT PLAN OF CARE Name: KAYLEIGH MCINTYRE JONO Room #: 509-P [facility] IN [facility].#: [id number] Admission: 12/30/18 ������������������ Attend Phys: Elroy Guzman MD Discharge: 01/13/19 ������������������ Date of : 47 Report #: [id number] rehabilitation stay. We may be able to wean some of the speech therapy and increase PT and OT, but will need to see how she does. ��������������������������������������������� <ELECTRONICALLY SIGNED> ���������������������������������������� By: Elroy Guzman MD ��������������������������������������������� 01/16/19 1001 0840 [id number] Elroy Guzman MD /nt
== END 2019-01-13 13:30 | disposition home health service (06) | DRG 177 ==
LOC: ENTRNSPT 01-13 13:16 → EDTRNSPTSTS 01-13 13:17
PROVIDERS: Internal Medicine Gastroenterology; Nurse Practitioner; ADMIT Physical Medicine & Rehabilitation
DX: J69.0 Pneumonitis due to inhalation of food and vomit (principal); J96.21 Acute and chronic respiratory failure with hypoxia; J96.22 Acute and chronic respiratory failure with hypercapnia; J44.1 Chronic obstructive pulmonary disease with (acute) exacerbation; K92.0 Hematemesis; K52.9 Noninfective gastroenteritis and colitis, unspecified; G40.909 Epilepsy, unspecified, not intractable, without status epilepticus; E53.8 Deficiency of other specified B group vitamins; F17.200 Nicotine dependence, unspecified, uncomplicated; K80.50 Calculus of bile duct without cholangitis or cholecystitis without obstruction; K59.00 Constipation, unspecified; G31.84 Mild cognitive impairment of uncertain or unknown etiology; I10 Essential (primary) hypertension; F32.9 Major depressive disorder, single episode, unspecified; F41.9 Anxiety disorder, unspecified; E86.0 Dehydration; Z88.0 Allergy status to penicillin; Z99.81 Dependence on supplemental oxygen; Z88.6 Allergy status to analgesic agent; Z91.041 Radiographic dye allergy status; Z79.899 Other long term (current) drug therapy; Z91.81 History of falling
CPT/HCPCS: 10112

== ENCOUNTER 2019-03-26 15:57 | Inpatient (IN) | payer OTHER ==
[~2019-03-26] VITALS: Ht 157.5 cm; Wt 68.5 kg
[~2019-03-26 15:57] MED LIST changes: +ERYTHROMYCIN250 M1 PO; +FLONASE 0.05%50 MCG NASAL; +FOLIC ACID1 MG PO; +GABAPENTIN 100100 MG PO; +IPRAT-ALBUT 0.5-3 ML INH; +LEVAQUIN 750 M750 MG PO; +MIRALAX17 GM PO; +MUCINEX600 MG PO; +NICOTINE TRANSD14 M1 TRANSDERM; +PROTONIX40 M1 PO; +VITAMIN B-12500 MCG PO
[2019-03-26 15:58] VITALS: BP 124/57
[2019-03-26 17:31] LABS: ABSOLUTE NEUTROPHILS 6.2 thou/uL (1.4-8.2); BASOPHILS 0.5 % (0.0-2.0); EOSINOPHILS 0.8 % (0.0-3.0); HEMATOCRIT 43.2 % (37.0-47.0); HEMOGLOBIN 14.4 gm/dL (12.0-15.0); MCH 33.5 pg (26.0-34.0); MCHC 33.4 g/dL (28.0-37.0); MCV 100.2 fL (80.0-100.0); MONOCYTES 4.9 % (1.0-8.0); PLATELET COUNT 197 thou/uL (150-400); POLYS 87.8 % (36.0-66.0); RBC 4.31 mil/uL (4.20-5.00); RDW 14.2 % (10.5-14.5); WBC 7.1 thou/uL (4.0-11.0)
[2019-03-26 17:37] LABS: CALCIUM 9.2 mg/dL (8.5-10.1); CREATININE 0.7 mg/dL (0.6-1.0)
[2019-03-26 17:43] LABS: ALBUMIN 3.3 g/dL (3.4-5.0); TOTAL BILIRUBIN 0.3 mg/dL (<0.1-1.0); TOTAL PROTEIN 6.4 g/dL (6.4-8.2)
[2019-03-26 17:46] LABS: APTT 25.2 Seconds (24.5-32.8); PROTIME 9.8 Seconds (9.3-11.4)
[2019-03-26 18:06] VITALS: BP 131/57
[2019-03-26 18:48] VITALS: BP 124/65
[2019-03-26 19:44] VITALS: BP 149/62
[2019-03-26 23:56] LABS: URINE BILIRUBIN NEGATIVE (Negative); URINE BLOOD NEGATIVE (Negative); URINE CLARITY CLEAR; URINE COLOR YELLOW; URINE GLUCOSE-RANDOM* NEGATIVE (Negative); URINE KETONES NEGATIVE (Negative); URINE LEUKOCYTES-REFLEX NEGATIVE (Negative); URINE NITRITE-REFLEX NEGATIVE (Negative); URINE PROTEIN (DIPSTICK) NEGATIVE (Negative); URINE UROBILINOGEN 0.2 E.U./dl (0.2-1.0)
[2019-03-27] VITALS (13 sets, daily range): BP systolic 114–152; BP diastolic 46–83
--- NOTE | 2019-03-27 00:48 | NUR ---
ASSUMED CARE OF PT AT 1900HRS. PT IS AOX4 AND AGREES TO CALL FOR HELP NEEDED. PT WAS ORIENTED TO THE ROOM AND THE UNIT. PT WAS ABLE TO ANSWER ALL ADMISSION RELATED QUESTIONS. FALL PRECAUTION IN PLACE. PT REPORTED SEVERE PAIN ON HER LEFT HIP AND WAS MEDICATED WITH PRN PAIN MEDS. 2L O2 VIA NC RESUMED AT HOME. MED REQ COMPLETED. ORDERS STARTED. THE NIGHT PROGRESSED, PT WAS PLACED NPT AT IN FOR A PROCEDURE IN THE AM. LINARES PLACED. PT WAS ABLE TO GET COMFORTABLE. VSS AND NO S/S OF ACUTE DISTRESS. WILL CONTINUE TO MONITOR.
[2019-03-27 06:02] LABS: CALCIUM 8.7 mg/dL (8.5-10.1); CREATININE 0.7 mg/dL (0.6-1.0)
--- NOTE | 2019-03-27 07:48 | EKG ---
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 03/27/19 0748 1653 1653 Rajan Ames MD, [facility] /EPI
[2019-03-27 10:51] LABS: HEMATOCRIT 39.9 % (37.0-47.0); HEMOGLOBIN 13.2 gm/dL (12.0-15.0); MCH 33.2 pg (26.0-34.0); MCV 100.5 fL (80.0-100.0); RBC 3.97 mil/uL (4.20-5.00); RDW 14.5 % (10.5-14.5)
--- NOTE | 2019-03-27 15:17 | NUR ---
PT ADMITTED RELATED TO L HIP FX. CM REVIEWED CHART AND SPOKE WITH CARE TEAM. CM MET WITH PT AT BEDSIDE THIS DAY. PT IS A&O X4. CM ROLE INTRODUCED. PT INDICATED SHE LIVES IN A HOUSE WITH HER SPOUSE WITH 8 STEPS TO ENTER AND 12 STEPS INSIDE. PT INDICATED SHE HAD USED A CANE TO ASSIST WITH MOBILITY STORAGE ARCHITECT BUT THAT SHE HAS A 4WW WITH A SEAT TO ASSIST WITH MOBILITY WELL. PT INDICATED SHE WANTS TO RETURN HOME UPON DC AND THAT SHE ISN'T WANTING TO GO FOR A POST ACUTE CARE STAY. CM ASKED IF CM COULD LEAVE A LIST OF FACILITIES FOR PT IN THE EVENT IT'S RECOMMENDED AND SHE STATED THAT SHE HAD A LIST BUT THAT SHE WOULD GO HOME. CM TO FOLLOW INDICATED WITH DC PLANNING.
--- NOTE | 2019-03-27 17:07 | NUR ---
PT A&OX4, VSS, PAIN IN RIGHT HIP. MEDICATION GIVEN TO MANAGE PAIN. PT ON 2L OF OXYGEN, DENIES SOA, BREATHING REG. PT HAD HIP SURGERY TODAY, BRAYDON DRESSING C/D/I. ICE PACK ON HIP. NO SIGNS OF DISTRESS. BILAT CHASTITY CUELLAR AND SCDS IN PLACE. AT BEDSIDE. PT UP WITH PHYSICAL THERAPY TODAY AND SUCCESSFUL. WILL CONTINUE TO MONITOR.
[2019-03-28 05:20] LABS: HEMATOCRIT 30.5 % (37.0-47.0); MCH 33.6 pg (26.0-34.0); MCHC 33.4 g/dL (28.0-37.0); MCV 100.6 fL (80.0-100.0); RBC 3.03 mil/uL (4.20-5.00); RDW 14.4 % (10.5-14.5); WBC 6.7 thou/uL (4.0-11.0)
[2019-03-28 05:31] LABS: HEMOGLOBIN 10.2 gm/dL (12.0-15.0)
[2019-03-28 07:15] VITALS: BP 114/76
--- NOTE | 2019-03-28 07:42 | NUR ---
PROGRESS PT PROGRESSING SLOWLY, LEFT HIP DRSG INTACT NO DRAINAGE NOTED, PEDAL PULSE PRESENT FOOT WARM AND PINK WITH GOOD CAP REFILL, SENSATION INTACT AND PT ABLE TO PEDAL AND DORSI FLEX WITHOUT DIFFICULTY. LINARES IN PLACE DRAINING CLEAR YELLOW URINE. PT NOT OOB OVERNIGHT BUT REPOSITIONED FREQUENTLY ENCOURAGED FOOT PUMPS, SCD'S AND TEDS IN PLACE. ON 2 LITERS O2 PER HOME REGIMEN, LUNG SOUNDS COARSE ISP AT BEDSIDE ENCOURAGED PT TO USE INDEPENDENTLY. RATING PAIN AN 8 OR HIGHER TAKING 10 MG HYDROCODONE PRN AND USING IV FENTANYL FOR BREAKTHROUGH PAIN GIVEN X 2 THIS SHIFT. CONTINUE TO MONITOR
[2019-03-28 08:52] VITALS: BP 114/76
--- NOTE | 2019-03-28 13:28 | NUR ---
Received awake on bed. Due medications given as prescribed, able to swallow tablets w/o difficulty. A+O. With O2 at 2lpm via nasal cannula. With wahl in place- draining well, output measured and recorded accordingly- to be removed 03/29 as ordered. With NS0.45 at 80cc/hr, infusing well at L hand- 2/2 as prescribed. Pt complained of pain, due PRN pain meds given as prescribed. Seen by PT today- tolerated well, able to sit out on chair. Visited by relatives today. With surgical wound at R hip- C/D/I; BRAYDON dressing, SCDs, TEDs, and ice pack in place. Assisted in ADLs, encouraged to eat and drink. RT referred to pt sats 91%- O2 increased to 3lpm via nasal cannula. Falls risk- falls bundle in place. Vital signs stable.
[2019-03-28 20:25] VITALS: BP 106/57
[2019-03-29 05:02] LABS: HEMATOCRIT 27.3 % (37.0-47.0); HEMOGLOBIN 9.2 gm/dL (12.0-15.0); MCH 33.6 pg (26.0-34.0); MCHC 33.7 g/dL (28.0-37.0); MCV 99.5 fL (80.0-100.0); RBC 2.74 mil/uL (4.20-5.00); RDW 14.3 % (10.5-14.5); WBC 5.6 thou/uL (4.0-11.0)
[2019-03-29 07:14] VITALS: BP 105/42
--- NOTE | 2019-03-29 08:25 | NUR ---
PROGRESS PT A/O X4 PT QUIETER THIS EVENING SHE STATED SHE HAD A ROUGH DAY AND WAS TIRED. VSS, LUNGS REMAIN COARSE AND DIMINISHED IN BASES USES ISP WITH ENCOURAGEMENT ONLY PULLS UP TO 1500 TO 2000 ML'S. ABDOMEN SOFT AND NON TENDER ACTIVE BOWEL SOUNDS AND PT DENIES NAUSEA. IT WAS REPORTED THAT SHE HAD MODERATE INTAKE OF MEALS ALL DAY AND ADEQUATE FLUID CONSUMPTION NOTED. LINARES CATHETER IN PLACE DRAINING ADEQUATE AMOUNTS OF URINE. IV TO LW FLUSHES WITHOUT DIFFICULTY. PLAN FOR LINARES DC AND INCREASED ACTIVITY.
[2019-03-29 09:22] VITALS: BP 105/42
--- NOTE | 2019-03-29 13:35 | NUR ---
PATIENT LEFT HIP DRESSING REMAINS C/D/I. BRAYDON DRESSING IN PLACE/ INTACT. MINIMAL DRIED DRAINAGE NOTED UPON ASSESSMENT. NO INDICATION NOTED FOR NEED TO CHANGE DRESSING. PATIENT REPORTS PAIN IN HIP. MEDICATIONS ADMINISTERED PER ORDERS. PATIENT SLEEPING UPON REASSESSMENT POST ADMINISTRATION.
[2019-03-29 15:12] VITALS: BP 100/45
[2019-03-29 19:25] VITALS: BP 115/39
[2019-03-30 02:50] VITALS: BP 103/42
--- NOTE | 2019-03-30 05:08 | NUR ---
PATIENT ALERT AND ORIENTED X4 WITH FORGETFULNESS. 2LNC IN PLACE. LEFT HIP DRESSING INTACT WITH SMALL AMOUNT OF DRAINAGE. BP AT SHIFT CHANGE 115/39 WITH TEMP OF 99.3 THIS NURSE CALLED AND RECEIVED ORDERS AT APPROX 2200 FOR 250ML OF NORMAL SALINE X1 BOLUS. BLOOD PRESSURE AT 0130 105/40. SPOKE WITH [employer] PRESS OPERATOR HELPER (CAROLYN) AND RECEIVED ORDER TO RECHECK AROUND 0400. AT 0400 BP WAS 103/42 WITH TEMP OF 98.6 ORDERS RECEIVED FROM [employer] PR[employer] OPERATOR HELPER FOR BOLUS OF 500ML NS X1. WILL MONITOR. PATIENT HAS REMAINED ALERT AND ORIENTED AND COOPERATIVE. NO C/O NAUSEA DURING THE NIGHT.
[2019-03-30 06:47] VITALS: BP 104/43
[2019-03-30 07:40] VITALS: BP 104/45
--- NOTE | 2019-03-30 08:09 | O ---
[facility] [place] [address] OPERATIVE REPORT Name: KAYLEIGH MCINTYRE Room #: 455-P [facility] IN M.R.#: [id number] Admission: 03/26/19 Attend Phys: Edith Smart MD Discharge: Date of : 47 Report #: [id number] THIS REPORT FOR: //name// CC: Edith Murphy DATE OF SERVICE: 03/27/2019 PREOPERATIVE DIAGNOSIS: Left femoral neck fracture. POSTOPERATIVE DIAGNOSIS: Left femoral neck fracture. PROCEDURE: Left proximal femoral hemiarthroplasty. SURGEON: Elroy Sigaal MD. INDICATIONS: This 73-year-old female fell injuring the left hip. X-rays confirmed a displaced femoral neck fracture. She has mild generalized degenerative arthritis, but no other significant objective orthopedic problems. We have discussed treatment options and she is elected to go ahead with cemented left hip hemiarthroplasty. DESCRIPTION OF PROCEDURE: The patient was taken to the operating room where she was placed under general anesthesia. Prophylactic intravenous antibiotics were administered. She was turned to the right lateral decubitus position. The left hip, thigh and leg were meticulously prepped and draped. A slightly curving skin incision was made centered over the greater trochanter. This was carried through muscle and fascia exposing the posterior aspect of the hip joint. The short external rotators and capsule were taken down and preserved and tagged with several #1 Tevdek sutures. The femoral neck was found to be fractured and unstable. The head was removed and measured at 43 mm in diameter. The fractured neck was trimmed back to an appropriate level. The canal was opened with reamers and hand broaches. The [employer]hew cemented hip system was utilized. A size 13 cemented stem seemed to fit nicely. A trial reduction was performed. A +0 neck length with a 43 mm head size fit nicely. This resulted in good alignment, range of motion, stability and leg length. The trial components were removed. The canal was thoroughly irrigated and dried. A cement restrictor was placed and methyl methacrylate cement was mixed and injected into the canal. The Ramirez [employer] Nephew size 13 cemented femoral stem was then selected. This was placed in the canal, positioned this in about 15-20 degrees of anteversion. Excess cement was removed from around its margin. A 43 mm stainless steel unipolar head was then selected. A +0 neck length sleeve was selected. These were inserted and impacted into position. Base seated nicely and appeared to be secured. The hip was reduced and alignment, range of motion, stability and leg length were assessed and felt to be satisfactory. The [address] [address] OPERATIVE REPORT Name: KAYLEIGH MCINTYRE JONO Room #: 455-P [facility] IN M.R.#: [id number] Admission: 03/26/19 Attend Phys: Edith Smart MD Discharge: Date of : 47 Report #: [id number] external rotators and capsule were then repaired back to bone using the #1 Tevdek sutures. At this point, there was good hemostasis and I did not feel the need for a Hemovac drain. The fascia was closed with multiple #1 Vicryl sutures. The subcutaneous tissues were closed with 0 Monocryl. The skin was closed with skin maribel. A sterile dressing was applied. The patient was awakened and returned to recovery room in good condition. <ELECTRONICALLY SIGNED> By: Elroy Sigala MD 03/30/19 0809 [id number] Elroy Sigala MD /nt
[2019-03-30 13:18] LABS: HEMATOCRIT 26.5 % (37.0-47.0); MCH 33.6 pg (26.0-34.0); MCHC 33.8 g/dL (28.0-37.0); MCV 99.6 fL (80.0-100.0); RBC 2.66 mil/uL (4.20-5.00); RDW 13.9 % (10.5-14.5); WBC 4.9 thou/uL (4.0-11.0)
[2019-03-30 13:23] LABS: CALCIUM 8.8 mg/dL (8.5-10.1); CREATININE 0.6 mg/dL (0.6-1.0); POTASSIUM 4.3 mmol/L (3.5-5.1)
[2019-03-30 14:45] VITALS: BP 99/55
[2019-03-30 14:52] VITALS: BP 113/49
[2019-03-30 19:10] VITALS: BP 102/47
--- NOTE | 2019-03-30 20:30 | NUR ---
PATIENT ALERT AND ORIENTED WITH NO VISITORS TODAY. PATIENT UP TO CHAIR FOR SEVERAL HOURS OVER LUNCH HOUR. PATIENT REQUESTING PAIN MEDS FOR HIP PAIN. VITAL SIGNS STABLE AND NOTIFIED PRIMARY MD REGARDING LOW BP AND HGB LAB VALUES TRENDING DOWN. NO NEW ORDERS.
--- NOTE | 2019-03-31 04:17 | NUR ---
ASSUMED CARE AROUND 1899. AXOX3. PERSISTENT PAIN TO R HIP. TX PER MD ORDER. NO S/S ACUTE DISTRESS NOTED OR REPORTED AT THIS TIME. WILL CONT TO MONITOR FOR ANY CHANGES IN CONSITION.
[2019-03-31 04:44] VITALS: BP 130/48
[2019-03-31 08:51] VITALS: BP 102/49
--- NOTE | 2019-03-31 13:28 | NUR ---
DELL sent referral to [facility].
--- NOTE | 2019-03-31 15:27 | HC ---
[facility] [place] [address] CONSULTATION Name: KAYLEIGH MCINTYRE Room #: 455-P ADM IN M.R.#: [id number] Admission: 03/26/19 Attend Phys: Edith Smart MD Discharge: Date of : 47 Report #: [id number] THIS REPORT FOR: //name// CC: Fitz Murphy DATE OF SERVICE: 03/27/2019 REASON FOR CONSULTATION: Left hip fracture. HISTORY OF PRESENT ILLNESS: The patient is a 73-year-old female who is coming out of the lawn yesterday when she feels like she tripped and fell onto her left hip. She reports immediate left hip pain, denied loss of consciousness, was brought into the Emergency Department and evaluated and diagnosed with a left hip fracture. PAST MEDICAL HISTORY: Significant for COPD, colitis, bipolar. . ALLERGIES: IODINE, LATEX, MORPHINE, PENICILLINS and ASPIRIN. REVIEW OF SYSTEMS: MUSCULOSKELETAL: Denies other injuries. See HPI. NEUROLOGIC: Denies numbness or tingling. SURGICAL HISTORY: The patient denies any cardiac, renal or pulmonary surgery. SOCIAL HISTORY: She lives at home with her , is on 2 liters of oxygen at night. Smokes 1 pack of cigarettes a day. Denies use of any ambulatory aids. HOME MEDICATIONS: Include ipratropium albuterol, acetaminophen, pantoprazole, gabapentin, fluticasone, polyethylene glycol, cyanocobalamin, folic acid, guaifenesin, erythromycin, nicotine patch and loperamide. Other reported medications include alprazolam, bupropion, carbamazepine, sertraline and levocetirizine. LABORATORY DATA: Done on the date of admission show white blood cell count 7.1, hemoglobin 14.4, hematocrit 43.2. Platelet count 197. INR is 1. Chemistry is grossly normal, except for a low albumin at 3.3. PHYSICAL EXAMINATION: GENERAL: The patient is alert and oriented. She interacts appropriately. She is a well-developed, well-nourished female in no acute distress. VITAL SIGNS: Most recent vital signs show a temperature of 36.8, heart rate is 75, respiratory rate 18, blood pressure 152/77, pulse oximetry is 96% on 2 liters nasal cannula. [address] [address] CONSULTATION Name: KAYLEIGH MCINTYRE JONO Room #: 455-P [facility] IN ..#: [id number] Admission: 03/26/19 Attend Phys: Edith Smart MD Discharge: Date of : 47 Report #: [id number] EXTREMITIES: Examination of her bilateral upper extremities, she has gross motor and sensory intact. Her skin is clean, dry and intact. She has no tenderness to palpation throughout the bilateral sternum, clavicles, shoulders, arms, elbows, forearms, wrists and hands. She moves all of her bilateral upper extremity joints without pain. RIGHT LOWER EXTREMITY EXAM: Sensation and motor are grossly intact. Skin is clean, dry and intact. EHL, FHL, dorsiflexion and plantarflexion are intact. There is no deformity. There is no pain with right hip, knee, ankle or foot range of motion. There is no tenderness to palpation throughout the entire right lower extremity. LEFT LOWER EXTREMITY EXAM: Her left lower extremity is shortened and externally rotated. Sensory and motor is grossly intact. She has brisk capillary refill. EHL, FHL, dorsiflexion and plantarflexion are intact. There is no tenderness to palpation through the knee, leg, ankle or foot. There is no pain with range of motion of these joints. There is tenderness in the proximal hip and pain with attempted range of motion. RADIOGRAPHS: AP pelvis and AP and lateral of the left hip show a displaced subcapital femoral neck fracture. IMPRESSION AND PLAN: Left displaced subcapital femoral neck fracture in a 73-year-old female, previously ambulatory without any assistive devices, but with chronic obstructive pulmonary disease. I discussed the diagnosis as well as treatment options. We discussed the rationale for recommending surgical treatment including the ability for her to ambulate. The risks, benefits, alternatives and complications were discussed, including but not limited to decreased ambulatory level, blood clots, infection, damage to vessels or nerves, limb length inequality, hip dislocation, hardware complications. Informed consent was obtained. She is tentatively on the surgery schedule for today. I will find with one of my [facility] partners who has availability and plan for surgery today. Questions were answered and encouraged to the best of my ability. <ELECTRONICALLY SIGNED> By: Casi Tobin MD 03/31/19 1527 [id number] Casi Tobin MD /nt
[2019-03-31 15:32] VITALS: BP 129/58
--- NOTE | 2019-03-31 16:36 | NUR ---
PT AND SPOUSE INDIATED THEY WANTED REFERRAL TO BE SENT TO [facility]. THEY CAN ACCEPT AND WILL TAKE PT TOMORROW. CM TO FOLLOW INDICATED WITH DC PLANNING.
[2019-03-31 19:49] VITALS: BP 130/52
--- NOTE | 2019-03-31 19:53 | NUR ---
Assumed patient care at 0715. She continues on Oxygen at 2Liters per nasal cannula. Patient's BRAYDON dressing on left hip is intact. She has been up to use the bedside commode and to go from bed to chair with moderate assist. Appetite has been good. Vital signs have been WNL's, Lung sounds are dimished. Patient has requested et recieved Hydrocodone q 4 hours today for "level eight" left hip pain; this has given her partial relief (decreased pain to approximately "three to four"). Report given to CECI Handy.
--- NOTE | 2019-04-01 04:54 | NUR ---
Pt. rested quietly at short intervals during the night when checked on during frequent rounds. She does c/o left sided hip pain and po pain meds given (see emar) with some relief noted. Picco dressing has large amount of dried blood, but dressing is intact. Bed alarm is on.
[2019-04-01 07:15] VITALS: BP 117/52
--- NOTE | 2019-04-01 08:58 | NUR ---
Nutrition: Pt seen for early day 6 LOS. Admit: L hip fracture, s/p L proximal femoral hemiarthroplasty 03/26. Plan to d/c to SNF soon. Hx: COPD, bipolar, tobacco abuse. On a heart healthy diet, averaging 65% of the last 7 meals consumed (ate 75% of all meals yesterday). Reports appetite was low following surgery, but now is doing "so-so" again. Although PMH doesn't list cardiac issues, explained benefit of heart healthy eating. Encouraged working on at least 1 protein source per meal. Identified what counts as protein. Encouraged her to change lunch order as she loved chicken salad previously and has been limited in chewing ability d/t lack of dentures at the moment. Recent BM 03/30. Low nutrition risk w/ improved appetite, protein education, soft food changes.
[2019-04-01] MEDS ORDERED: HYDROCODON-ACE1 EAC7 PO (14:06)
--- NOTE | 2019-04-01 15:05 | NUR ---
DISCHARGE ORDERS COMPLETED. PATIENT DISCHARGING TO [facility]. DISCHARGE ORDERS FAXED TO [facility]. CALL PLACED TO [facility] TO NOTIFY. [facility] TO TRANSPORT PATIENT, 1600 HOURS. CALL PLACED TO PATIENTS TO NOTIFY, VM LEFT FOR HIM. UNIT NOTIFIED AND CONTACT NUMBER FOR REPORT PROVIDED.
--- NOTE | 2019-04-01 16:28 | NUR ---
ASSESSMENT CHARTED - MEDS PER SEP - NO CO'S OF PAIN OR NAUSEA. MANUEL DIET AND FLUIDS. SEEN BY PHYS AND OCC THERAPY THIS SHIFT - AMBULATED IN THE [place] WITH THE USE OF WALKLER. UP IN THE CHAIR FOR MOST OF THE DAY. PT TO [facility] THIS AFTERNOON. REPORT CALLED TO LALA AT THE RECEIVING FACILITY. PT LEFT UNIT VIA WHEELCHAIR VAN. NO CO'S AT TIME OF D/C.
== END 2019-04-01 17:43 | DRG 469 ==
LOC: ER 15:57 → 4W 17:55 → EROBS 17:55 → 4W 18:54
PROVIDERS: Emergency Medicine; Nurse Practitioner Family; Orthopaedic Surgery; ADMIT Internal Medicine
PROC: 0SRS0J9 Replacement of Left Hip Joint, Femoral Surface with Synthetic Substitute, Cemented, Open Approach (ICD-10-PCS; principal; 2019-03-27)
DX: S72.012A Unspecified intracapsular fracture of left femur, initial encounter for closed fracture (principal); E43 Unspecified severe protein-calorie malnutrition; D62 Acute posthemorrhagic anemia; J44.9 Chronic obstructive pulmonary disease, unspecified; R56.9 Unspecified convulsions; F31.9 Bipolar disorder, unspecified; F17.210 Nicotine dependence, cigarettes, uncomplicated; F41.9 Anxiety disorder, unspecified; W10.8XXA Fall (on) (from) other stairs and steps, initial encounter; Y93.89 Activity, other specified; Y92.513 Shop (commercial) as the place of occurrence of the external cause; Y99.8 Other external cause status; Z87.81 Personal history of (healed) traumatic fracture; Z90.49 Acquired absence of other specified parts of digestive tract; Z79.51 Long term (current) use of inhaled steroids; Z79.899 Other long term (current) drug therapy; Z91.040 Latex allergy status; Z88.0 Allergy status to penicillin; Z88.6 Allergy status to analgesic agent; Z91.041 Radiographic dye allergy status; Z88.5 Allergy status to narcotic agent; Z71.6 Tobacco abuse counseling
CPT/HCPCS: 10040; 50010; 50101; 50382; 50414; 51057; 51130; 51225; 51412; 53369; 56521; 56525; 56527; 57103; 57116; 62110; 62900; 70005

== ENCOUNTER → 2021-03-02 | Outpatient (CLI) | payer OTHER ==
[~2021-03-02] MED LIST changes: +HYDROCODON-ACE1 EAC7 PO
== END ==
LOC: HYPER 08:29
PROVIDERS: ATTEND Emergency Medicine Emergency Medical Services
DX: S61.412A Laceration without foreign body of left hand, initial encounter (principal); I10 Essential (primary) hypertension; J43.9 Emphysema, unspecified; F32.9 Major depressive disorder, single episode, unspecified; F41.9 Anxiety disorder, unspecified; F17.290 Nicotine dependence, other tobacco product, uncomplicated; Z79.899 Other long term (current) drug therapy; Z86.73 Personal history of transient ischemic attack (TIA), and cerebral infarction without residual deficits; Z90.49 Acquired absence of other specified parts of digestive tract; Z99.81 Dependence on supplemental oxygen; W19.XXXA Unspecified fall, initial encounter; Y93.89 Activity, other specified; Y92.89 Other specified places as the place of occurrence of the external cause; Y99.8 Other external cause status

== ENCOUNTER → 2021-03-16 | Outpatient (CLI) | payer OTHER | LOC: HYPER 09:28 | PROVIDERS: ATTEND Emergency Medicine | DX: S61.412D Laceration without foreign body of left hand, subsequent encounter (principal); I10 Essential (primary) hypertension; J43.9 Emphysema, unspecified; F32.9 Major depressive disorder, single episode, unspecified; F41.9 Anxiety disorder, unspecified; F17.290 Nicotine dependence, other tobacco product, uncomplicated; Z86.73 Personal history of transient ischemic attack (TIA), and cerebral infarction without residual deficits; Z90.49 Acquired absence of other specified parts of digestive tract; Z99.81 Dependence on supplemental oxygen; W19.XXXD Unspecified fall, subsequent encounter ==

== ENCOUNTER → 2021-05-18 | Outpatient (CLI) | payer OTHER | LOC: HYPER 12:53 | PROVIDERS: ATTEND Emergency Medicine | DX: S61.412D Laceration without foreign body of left hand, subsequent encounter (principal); R60.0 Localized edema; J43.9 Emphysema, unspecified; F17.290 Nicotine dependence, other tobacco product, uncomplicated; Z99.81 Dependence on supplemental oxygen; Z79.899 Other long term (current) drug therapy; W01.0XXD Fall on same level from slipping, tripping and stumbling without subsequent striking against object, subsequent encounter ==